=== PATIENT | male | born 1945 | race Caucasian/White ===

== ENCOUNTER 2018-07-22 15:10 | Emergency (ER) | payer OTHER ==
--- NOTE | 2018-07-22 15:47 | RAD REPORT ---
EXAM DESCRIPTION: RAD - Hand Left 3 View - 07/22/2018 3:36 pm CLINICAL HISTORY: Acute traumatic injury to the thumb COMPARISON: None. FINDINGS: Comminuted fracture involves the distal phalanx of the thumb. Multiple small bone fragment s are seen in the soft tissues. There is amputation of the distal soft tissues which likely includes partial amputation of the tuft. No retained foreign body. Patient has degenerative change at the IP joint of the thumb along with deg enerative changes at the second- fifth IP joints. Prominent degenerative change involves the first ca rpal - metacarpal articulation. IMPRESSION: Comminuted fracture of the distal phalanx thumb with tuft and soft tissue amputation.
[2018-07-22] MEDS ORDERED: NA CHLORIDE 0.9% 1,000 ML ONE (17:32)
--- NOTE | 2018-07-22 17:56 | EDPHYS ---
Physician Documentation [facility] Name: Joon Turcios Jr Age: 72 yrs Sex: Male : 1945 Arrival Date: 07/22/2018 Time: 15:12 Bed 17 Private MD: ED Physician Og Plata HPI: 07/22 15:21 This 72 yrs old Male presents to ER via Ambulatory with complaints of Left pm1 Thumb Injury. 15:21 Trauma demographics: Location of Injury: The injury occurred at home. Mechanism of pm1 injury: Laceration from the fan of leaf blower. Associated injuries: The patient sustained left thumb. Onset: The symptoms/episode began/occurred just prior to arrival. The patient has not experienced similar symptoms in the past. The patient has not recently seen a physician, the patient's primary care provider is Dr. MURRIETA. Tetanus within the last year. Patient was using a leaf blower with the guard to fan broken. Accidentally dropped the leaf blower caught it. Left thumb cut by the exposed fan. Historical: - Allergies: 15:23 Streptomycin; sv 15:23 unkn HTN med; sv - Home Meds: 15:14 Eliquis oral oral [Active]; sv - PMHx: 15:14 Chron's; sv - PSHx: 15:23 Ileostomy and reversal; sv - Immunization history:: Adult Immunizations unknown. - Immunization history: Last tetanus immunization: - up to date. - Social history:: Smoking status: Patient/guardian denies using tobacco. - Ebola Screening: : No symptoms or risks identified at this time. ROS: 15:24 Constitutional: Negative for fever, chills, and weight loss, Eyes: Negative for injury, pm1 pain, redness, and discharge, ENT: Negative for injury, pain, and discharge, Neck: Negative for injury, pain, and swelling, Cardiovascular: Negative for chest pain, palpitations, and edema, Respiratory: Negative for shortness of breath, cough, wheezing, and pleuritic chest pain, Abdomen/GI: Negative for abdominal pain, nausea, vomiting, diarrhea, and constipation, Back: Negative for injury and pain. 15:24 MS/extremity: Positive for injury or acute deformity, of the left thumb. 15:24 Skin: Positive for laceration(s), of the left thumb. Exam: 15:30 Constitutional: This is a well developed, well nourished patient who is awake, alert, pm1 and in no acute distress. Head/Face: Normocephalic, atraumatic. Eyes: Pupils equal round and reactive to light, extra-ocular motions intact. Lids and lashes normal. Conjunctiva and sclera are non-icteric and not injected. Cornea within normal limits. Periorbital areas with no swelling, redness, or edema. Neck: Trachea midline, no thyromegaly or masses palpated, and no cervical lymphadenopathy. Supple, full range of motion without nuchal rigidity, or vertebral point tenderness. No Meningismus. Chest/axilla: Normal chest wall appearance and motion. Nontender with no deformity. No lesions are appreciated. Cardiovascular: Regular rate and rhythm with a normal S1 and S2. No gallops, murmurs, or rubs. Normal PMI, no JVD. No pulse deficits. Respiratory: Lungs have equal breath sounds bilaterally, clear to auscultation and percussion. No rales, rhonchi or wheezes noted. No increased work of breathing, no retractions or nasal flaring. Back: No spinal tenderness. No costovertebral tenderness. Full range of motion. 15:30 Musculoskeletal/extremity: Extremities: grossly normal except: noted in the left thumb: Avulsion of 2/3's of left thumb nail. Remaining nail with nail bed intact. Amputation of tip of left thumb. 15:30 Skin: Appearance: normal except for affected area, injury, amputation of tip of left thumb. 15:30 Neuro: Orientation: is normal, Motor: is normal, moves all fours, Sensation: is normal, no obvious gross deficits. Vital Signs: 15:14 BP 150 / 98; Pulse 83; Resp 20; Pulse Ox 96% ; sv 17:36 BP 147 / 86; Pulse 76; Resp 14; Pulse Ox 98% on R/A; ph 18:41 BP 137 / 78; Pulse 76; Resp 18; Temp 98.0; Pulse Ox 99% on R/A; ph Laya Coma Score: 15:35 Eye Response: spontaneous(4). Verbal Response: oriented(5). Motor Response: obeys ph commands(6). Total: 15. Trauma Score (Adult): 15:35 Eye Response: spontaneous(1); Verbal Response: oriented(1); Motor Response: obeys ph commands(2); Systolic BP: > 89 mm Hg(4); Respiratory Rate: 10 to 29 per min(4); Laya Score: 15; Trauma Score: 12 MDM: 15:20 Patient medically screened. pm1 17:50 ED course: Consult with Dr. Plata. Dress the tip of wound with Surgicel, give pm1 antibiotic prescription, and patient can follow up with hand surgery on outpatient basis. 17:53 Data reviewed: vital signs. Data interpreted: Pulse oximetry: on room air is 98 %. pm1 Interpretation: normal. Counseling: I had a detailed discussion with the patient and/or guardian regarding: the historical points, exam findings, and any diagnostic results supporting the discharge/admit diagnosis, radiology results, the need for outpatient follow up, for definitive care, a hand specialist, to return to the emergency department if symptoms worsen or persist or if there are any questions or concerns that arise at home. 07/22 15:21 Order name: Hand Left 3 View XRAY; Complete Time: 16:00 pm1 07/22 17:07 Order name: Wound Care; Complete Time: 17:34 pm1 07/22 17:07 Order name: Misc. Order: surgicel hemostat; Complete Time: 17:34 pm1 07/22 17:07 Order name: Wound dressing; Complete Time: 18:01 pm1 Administered Medications: 18:19 Drug: Ancef 1 grams Route: IM; Site: left gluteus; ph 18:42 Follow up: Response: No adverse reaction ph 18:20 Drug: traMADol 50 mg Route: PO; ph 18:41 Follow up: Response: No adverse reaction ph Disposition: 19:32 Co-signature as Attending Physician, Og Plata MD I agree with the assessment and kdr plan of care. Disposition: 07/22/18 17:55 Discharged to Home. Impression: Comminuted fracture of the distal phalanx left thumb with tuft and soft tissue amputation. - Condition is Stable. - Discharge Instructions: Traumatic Finger Amputation. - Prescriptions for Keflex 500 mg Oral Capsule - take 1 capsule by ORAL route every 6 hours for 10 days; 40 capsule. Tramadol 50 mg Oral Tablet - take 1 tablet by ORAL route every 8 hours as needed; 20 tablet. - Medication Reconciliation Form, Thank You Letter, Antibiotic Education, Prescription Opioid Use form. - Follow up: Emergency Department; When: As needed; Reason: Worsening of condition. Follow up: Jose Baer MD; When: 2 - 3 days; Reason: Recheck today's complaints, Continuance of care, Re-evaluation by your physician. - Problem is new. - Symptoms have improved. Signatures: Dispatcher [employer] Cara Kimble RN RN Og Plata MD MD [facility] Mariluz Harris RN RN Nathen Flood, [employer] HEAD INSPECTOR AND ADJUSTER pm1 Corrections: (The following items were deleted from the chart) 15:23 15:14 PSHx: illostomy; [facility] 18:57 17:55 07/22/2018 17:55 Discharged to Home. Impression: Comminuted fracture of the ph distal phalanx left thumb with tuft and soft tissue amputation. Condition is Stable. Forms are Medication Reconciliation Form, Thank You Letter, Antibiotic Education, Prescription Opioid Use. Follow up: Emergency Department; When: As needed; Reason: Worsening of condition. Follow up: Jose Baer; When: 2 - 3 days; Reason: Recheck today's complaints, Continuance of care, Re-evaluation by your physician. Problem is new. Symptoms have improved. pm1
--- NOTE | 2018-07-22 17:56 | ER ---
Nurse's Notes [facility] Name: Joon Turcios Jr Age: 72 yrs Sex: Male : 1945 Arrival Date: 07/22/2018 Time: 15:12 Bed 17 Private MD: Diagnosis: Comminuted fracture of the distal phalanx left thumb with tuft and soft tissue amputation Presentation: 07/22 15:12 Presenting complaint: Patient states: left thumb amputation and maceration from a sv blower that occurred today. Transition of care: patient was not received from another setting of care. Onset of symptoms was July 22, 2018. Care prior to arrival: None. 15:12 Method Of Arrival: Ambulatory sv 15:12 Acuity: [place] 2 sv 15:14 Mechanism of Injury: Laceration sustained at home, while doing yard work, from leaf blower Injury was accidental. Trauma event details: Injury occurred in the [facility], Injury occurred: at home. 15:36 Risk Assessment: Do you want to hurt yourself or someone else? Patient reports no ph desire to harm self or others. Initial Sepsis Screen: Does the patient meet any 2 criteria? No. Patient's initial sepsis screen is negative. Does the patient have a suspected source of infection? No. Patient's initial sepsis screen is negative. Triage Assessment: 16:39 General: Appears. ph Trauma Activation: Alert Physician: ED Physician; Name: Aleena ZIEGLER; Notified At: 15:14; Arrived At: 15:16 Physician: General Surgeon; Name: ; Notified At: 15:14; Arrived At: Physician: Radiology; Name: ; Notified At: 15:14; Arrived At: 15:15 Physician: Respiratory; Name: ; Notified At: 15:14; Arrived At: Physician: Lab; Name: ; Notified At: 15:14; Arrived At: Historical: - Allergies: 15:23 Streptomycin; sv 15:23 unkn HTN med; sv - Home Meds: 15:14 Eliquis oral oral [Active]; sv - PMHx: 15:14 Chron's; sv - PSHx: 15:23 Ileostomy and reversal; sv - Immunization history:: Adult Immunizations unknown. - Immunization history: Last tetanus immunization: - up to date. - Social history:: Smoking status: Patient/guardian denies using tobacco. - Ebola Screening: : No symptoms or risks identified at this time. Screenin:35 Abuse screen: Denies threats or abuse. Denies injuries from another. Nutritional ph screening: No deficits noted. Tuberculosis screening: No symptoms or risk factors identified. Fall Risk None identified. Primary Survey: 15:31 A: Airway: patent. Breathing/Chest: Respiratory pattern: regular, Respiratory effort: ph spontaneous, unlabored, Chest inspection: symmetrical rise and fall of the chest. Circulation: Pulses: palpable right radial artery and left radial artery. Skin color: pink, Skin temperature: warm, dry. Disability Alert. 18:41 Reassessment Breathing/Chest Respiratory pattern Regular Circulation Color [place] ph Temperature Warm Dry Disability Alert. Secondary Survey: 15:32 HEENT: No deficits noted. Gastrointestinal: No deficits noted. : No signs and/or ph symptoms were reported regarding the genitourinary system. Musculoskeletal: Circulation, motion, and sensation intact. Range of motion: intact in all extremities. Injury Description: Avulsion sustained to left thumb Laceration sustained to left thumb. Assessment: 15:30 General: Appears in no apparent distress. uncomfortable, slender, well groomed, ph Behavior is calm, cooperative, appropriate for age. Pain: Complains of pain in left thumb. Neuro: Level of Consciousness is awake, alert, obeys commands, Oriented to person, place, time, situation. Cardiovascular: Capillary refill < 3 seconds in bilateral fingers Patient's skin is warm and dry. Respiratory: Airway is patent Respiratory effort is even, unlabored. Derm: Skin is healthy with good turgor, Skin is pink, warm \T\ dry. Musculoskeletal: Circulation, motion, and sensation intact. Range of motion: intact in all extremities. Injury Description: Amputation sustained to left thumbnail. 16:30 Reassessment: Patient appears in no apparent distress at this time. Patient and/or ph family updated on plan of care and expected duration. Pain level reassessed. Patient is alert, oriented x 3, equal unlabored respirations, skin warm/dry/pink. 17:35 Reassessment: Patient appears in no apparent distress at this time. Patient and/or ph family updated on plan of care and expected duration. Pain level reassessed. Patient is alert, oriented x 3, equal unlabored respirations, skin warm/dry/pink. Pt resting quietly w/injured extremity soaking in NS and betadine, rates pain 3/10 and denies nausea. Vital Signs: 15:14 BP 150 / 98; Pulse 83; Resp 20; Pulse Ox 96% ; sv 17:36 BP 147 / 86; Pulse 76; Resp 14; Pulse Ox 98% on R/A; ph 18:41 BP 137 / 78; Pulse 76; Resp 18; Temp 98.0; Pulse Ox 99% on R/A; ph Laya Coma Score: 15:35 Eye Response: spontaneous(4). Verbal Response: oriented(5). Motor Response: obeys ph commands(6). Total: 15. Trauma Score (Adult): 15:35 Eye Response: spontaneous(1); Verbal Response: oriented(1); Motor Response: obeys ph commands(2); Systolic BP: > 89 mm Hg(4); Respiratory Rate: 10 to 29 per min(4); [place] Score: 15; Trauma Score: 12 ED Course: 15:12 Patient arrived in ED. sv 15:13 Triage completed. sv 15:14 Arm band placed on right wrist. Patient placed in an exam room, on a stretcher. sv 15:17 Nathen Flodo NP is PHCP. pm1 15:17 Og Plata MD is Attending Physician. pm1 15:31 Mariluz Harris, RN is Primary Nurse. ph 15:35 X-ray completed. Portable x-ray completed in exam room. Patient tolerated procedure ml well. 15:35 Patient has correct armband on for positive identification. Bed in low position. Call ph light in reach. Side rails up X 1. Pulse ox on. NIBP on. Warm blanket given. 15:36 Patient maintains SpO2 saturation greater than 95% on room air. Thermoregulation: warm ph blanket given to patient. 15:37 Hand Left 3 View XRAY In Process Unspecified. EDMS 17:53 Jose Baer MD is Referral Physician. pm1 18:00 Dressings: Tube gauze X 1; left thumb 4X4s X 1; left thumb Surgicel. Wound care: to. ph Wound care: to amputation of tip of L thumb located on left thumb was soaked in normal saline solution. 18:40 Assist provider with bone marrow aspiration. Patient did not have IV access during this emergency room visit. Administered Medications: 18:19 Drug: Ancef 1 grams Route: IM; Site: left gluteus; ph 18:42 Follow up: Response: No adverse reaction ph 18:20 Drug: traMADol 50 mg Route: PO; ph 18:41 Follow up: Response: No adverse reaction ph Intake: 15:35 PO: 0ml; Total: 0ml. ph Output: 15:35 Urine: 0ml; Total: 0ml. ph Outcome: 17:55 Discharge ordered by MD. pm1 18:42 Discharged to home ambulatory, with significant other. ph 18:42 Condition: good 18:42 Discharge instructions given to patient, family, Instructed on discharge instructions, follow up and referral plans. medication usage, Demonstrated understanding of instructions, follow-up care, medications, Prescriptions given X 2. 18:57 Patient left the ED. ph 18:57 Patient's length of stay was not longer than 2 hours. Signatures: Dispatcher [employer] EDCara Mendez RN RN Dominique Weeks Patricia, RN RN ph Marinas, Patrick, FEEDER WORKER POWER UNIT OPERATOR FEEDER WORKER POWER UNIT OPERATOR pm1 Corrections: (The following items were deleted from the chart) 15:23 15:14 PSHx: illostomy; radha garcia
[2018-07-22] MEDS ORDERED: TRAMADOL HCL 50 MG TAB ONE (18:15)
[2018-07-22] MEDS ORDERED: CEFAZOLIN SODIUM 1 GM/VIAL ONE (18:15)
[2018-07-22] MEDS ORDERED: WATER FOR INJ,STERILE 10 ML ONE (18:15)
== END 2018-07-22 18:57 | disposition home or self-care (01) ==
LOC: ER 15:10
DX: S68.022A Partial traumatic metacarpophalangeal amputation of left thumb, initial encounter (principal); S62.522A Displaced fracture of distal phalanx of left thumb, initial encounter for closed fracture; W29.2XXA Contact with other powered household machinery, initial encounter; Y93.89 Activity, other specified; Y92.009 Unspecified place in unspecified non-institutional (private) residence as the place of occurrence of the external cause; Z88.3 Allergy status to other anti-infective agents; Z88.8 Allergy status to other drugs, medicaments and biological substances
CPT/HCPCS: 96372; 99285; J0690; J7030

== ENCOUNTER 2020-08-30 22:32 | Inpatient (IN) | payer OTHER ==
[2020-08-30 23:59] LABS: Absolute Lymphocytes (CBC) 0.9 K/uL (0.7-4.9); Basophils % 0.4 % (0-1.3); Hematocrit 39.1 % (39.6-49.0); Lymphocytes % 22.9 % (15.3-44.8); MPV 8.5 fL (7.6-11.3); RBC Red Blood Cell Count 4.36 M/uL (4.33-5.43)
[2020-08-31] LABS: Protime INR 1.16
[2020-08-31 00:30] LABS: ALT/SGPT 41 U/L (12-78); AST/SGOT 47 U/L (15-37); Albumin 3.4 g/dL (3.4-5.0); Alkaline Phosphatase 55 U/L (45-117); BUN Blood Urea Nitrogen 15 mg/dL (7-18); Bicarbonate 21 mmol/L (21-32); Bilirubin Direct 0.2 mg/dL (0-0.2); Bilirubin Total 0.5 mg/dL (0.2-1.0); Ferritin 266.2 ng/mL (26-388); Glucose Level 125 mg/dL (74-106); Lipase 35 U/L (73-393); Protein, Total 7.8 g/dL (6.4-8.2); Sodium Level 132 mmol/L (136-145); Troponin (Emerg Dept Use Only) < 0.02 ng/mL (0.0-0.045)
[2020-08-31 00:45] LABS: Blood Gas Oxyhemoglobin 93.7 % (94-97); Blood O2 Saturation 95.2 % (92-98.5)
--- NOTE | 2020-08-31 07:01 | EDPHYS ---
Physician Documentation [facility] Name: Joon Turcios Jr Age: 74 yrs Sex: Male : 1945 Arrival Date: 08/30/2020 Time: 22:36 Bed 7 Private MD: ED Physician Darci Weber HPI: 08/31 00:49 This 74 yrs old Male presents to ER via Ambulatory with complaints of COVID pkl +, Fever, Cough, Congestion. 00:49 The patient reports fever, that was measured at 103.0 degrees Fahrenheit, with an l emergency department temperature of 101.1 degrees Fahrenheit. Onset: The symptoms/episode began/occurred today. Associated signs and symptoms: Pertinent positives: shortness of breath, bodyaches. Patient was seen at [facility] last Saturday. Had Covid 19 done. Was told today his Covid 19 test is positive. Was told to come to ER if temp. was over 103. . Historical: - Allergies: 08/30 23:16 Streptomycin; bb 23:16 Lisinopril; bb 23:16 Streptomycin; ea 23:16 unkn HTN med; ea - Home Meds: 23:16 allopurinol 100 mg Oral tab 1 tab once daily [Active]; apixaban oral 5 mg oral 1 tab 2 bb times per day [Active]; Cholestyramine Light 4 gram oral powd 3 times per day [Active]; B-12 1000 mcg daily [Active]; gabapentin 300 mg oral cap 1 cap 3 times per day [Active]; losartan 50 mg oral tab 1 tab 2 times per day [Active]; magnesium oxide 420 mg Oral tab twice a day [Active]; omeprazole 20 mg Oral cpDR 1 cap once daily [Active]; D3 [Active]; Keflex Oral [Active]; loperamide 2 mg Oral cap 1 caps twice a day [Active]; - PMHx: 23:16 Crohns Disease; Neuropathy; Hypertension; GERD; bb 23:16 chron's; ea - PSHx: 23:16 abdominal surgery; bb 23:16 Ileostomy and reversal; ea - Immunization history:: Adult Immunizations up to date, Adult Immunizations up to date, Flu vaccine is up to date. - Social history:: Smoking status: Patient denies any tobacco usage or history of. Smoking status: Patient denies any tobacco usage or history of. ROS: 08/31 00:49 Eyes: Negative for injury, pain, redness, and discharge. pkl ENT: Positive for Lost of taste and smell. Neck: Negative for stiffness. Cardiovascular: Negative for chest pain. Respiratory: Positive for cough, with clear sputum, shortness of breath, at rest. Abdomen/GI: Negative for abdominal pain, nausea, vomiting, and diarrhea. Back: Negative for acute changes. : Negative for urinary symptoms. MS/extremity: Negative for acute changes. Skin: Negative for rash. Neuro: Negative for altered mental status. Exam: 00:49 Head/Face: Normocephalic, atraumatic. Eyes: Pupils equal round and reactive to light, pkl extra-ocular motions intact. Lids and lashes normal. Conjunctiva and sclera are non-icteric and not injected. Cornea within normal limits. Periorbital areas with no swelling, redness, or edema. ENT: Nares patent. No nasal discharge, no septal abnormalities noted. Tympanic membranes are normal and external auditory canals are clear. Oropharynx with no redness, swelling, or masses, exudates, or evidence of obstruction, uvula midline. Mucous membranes moist. Neck: Trachea midline, no thyromegaly or masses palpated, and no cervical lymphadenopathy. Supple, full range of motion without nuchal rigidity, or vertebral point tenderness. No Meningismus. Chest/axilla: Normal chest wall appearance and motion. Nontender with no deformity. No lesions are appreciated. Cardiovascular: Regular rate and rhythm with a normal S1 and S2. No gallops, murmurs, or rubs. Normal PMI, no JVD. No pulse deficits. 00:49 Respiratory: mild respiratory distress is noted, Respirations: normal, Breath sounds: rales, that are mild, are scattered. 00:49 Abdomen/GI: Exam negative for acute changes, Bowel sounds: normal, Palpation: abdomen is soft and non-tender, in all quadrants. 00:49 Back: Exam negative for acute changes. 00:49 : Exam negative for acute changes. 00:49 Musculoskeletal/extremity: Exam is negative for acute changes. 00:49 Skin: Exam negative for rash. 00:49 Neuro: Orientation: is normal, Mentation: is normal, Cranial nerves: grossly normal, Motor: is normal. Vital Signs: 08/30 23:05 BP 114 / 65; Pulse 81; Resp 24 S; Temp 101.1(O); Pulse Ox 89% on R/A; Weight 90.72 kg bb (R); Height 6 ft. 1 in. (185.42 cm) (R); Pain 02/11; 08/31 00:34 BP 102 / 68; Pulse 63; Resp 22; Pulse Ox 98% on 2 lpm NC; ea 01:34 BP 90 / 60; Pulse 60; Resp 19; Pulse Ox 94% on 2 lpm NC; ea 01:35 Temp 99.7; ea 02:30 BP 119 / 66; Pulse 55; Resp 21; Pulse Ox 98% on 2 lpm NC; ea 04:09 BP 125 / 69; Pulse 60; Resp 20; Pulse Ox 97% ; ea 05:10 BP 127 / 75; Pulse 70; Resp 18; Pulse Ox 98% on 2 lpm NC; ea 06:35 BP 115 / 78; Pulse 67; Resp 18; Pulse Ox 94% ; ea 07:25 BP 142 / 84; Pulse 76; Resp 26; Temp 100.6; Pulse Ox 100% on 3.5 lpm NC; vg1 08:30 BP 134 / 82; Pulse 74; Resp 22; Pulse Ox 97% on 3.5 lpm NC; sv 08/30 23:05 Body Mass Index 26.39 (90.72 kg, 185.42 cm) bb MDM: 08/30 23:03 Patient medically screened. pkl 08/31 06:10 Data reviewed: vital signs, nurses notes, lab test result(s), EKG, radiologic studies, pkl CT scan, plain films. ED course: Awaiting response from [facility] regarding transfer. Patient and notified of situation. Patient requests to be admitted here. 06:36 ED course: Talked to Dr. Cohen, admit. pkl 07:00 Patient medically screened. pkl 08/30 23:17 Order name: Blood Culture Adult (2) 08/30 23:17 Order name: Lactate; Complete Time: 00:17 ea 08/30 23:20 Order name: Strep ea 08/30 23:20 Order name: BMP 08/30 23:20 Order name: C-Reactive Protein 08/30 23:20 Order name: CBC with Diff; Complete Time: 00:17 08/30 23:20 Order name: D-Dimer; Complete Time: 00:17 08/30 23:20 Order name: Ferritin; Complete Time: 00:37 08/30 23:20 Order name: Flu; Complete Time: 00:37 08/30 23:20 Order name: LFT's; Complete Time: 00:37 08/30 23:20 Order name: Lipase; Complete Time: 00:37 08/30 23:20 Order name: Procalcitonin; Complete Time: 04:25 08/30 23:20 Order name: PT-INR; Complete Time: 00:17 08/30 23:20 Order name: Ptt, Activated; Complete Time: 00:17 08/30 23:20 Order name: Troponin (emerg Dept Use Only); Complete Time: 00:37 08/30 23:20 Order name: CXR XRAY 08/30 23:20 Order name: EKG; Complete Time: 23:21 08/30 23:20 Order name: Cardiac monitoring; Complete Time: 23:28 08/30 23:20 Order name: Droplet/Contact Precautions; Complete Time: 23:27 08/30 23:21 Order name: Group A Streptococcus Rapid Sc; Complete Time: 00:37 EDTN 08/30 23:21 Order name: Basic Metabolic Panel; Complete Time: 00:37 EDTN 08/30 23:21 Order name: C-Reactive Protein; Complete Time: 00:37 EDTN 08/30 23:21 Order name: CT Chest Wo Con 08/30 23:21 Order name: ABG; Complete Time: 04:25 08/31 00:34 Order name: Throat Culture [facility] 08/31 03:05 Order name: SARS-COV-2 RT PCR; Complete Time: 04:25 EDTN 08/30 23:20 Order name: EKG - Nurse/Tech; Complete Time: 23:27 08/30 23:20 Order name: IV Start; Complete Time: 00:13 08/30 23:20 Order name: Labs collected and sent; Complete Time: 00:13 08/30 23:20 Order name: O2 Per Protocol; Complete Time: 23:22 08/30 23:20 Order name: O2 Sat Monitoring; Complete Time: 23:22 ea Administered Medications: 07:20 Drug: SOLU-Medrol 80 mg Route: IVP; Site: right forearm; vg1 08:31 Follow up: Response: No adverse reaction vg1 Disposition: 08/31/20 07:00 Hospitalization ordered by Ramin Cohen for Inpatient Admission. Preliminary diagnosis is Positive Covid 19. Bilateral pneumonia. Hypoxia. - Bed requested for Intensive Care Unit. - Status is Inpatient Admission. sv - Condition is Stable. - Problem is new. - Symptoms are unchanged. Signatures: Dispatcher [employer] EDMS Melissa Zhao Stephanie, RN Darci Contreras MD MD pkl Ballard, Brenda, RN RN Bhavesh Donald, IT PROFESSIONAL-C IT PROFESSIONAL-Cla1 Damari Jovel RN Yee Nicholas ea RN RN vg1 Corrections: (The following items were deleted from the chart) 08/30 23:22 23:20 Maddox ordered. morgan 23:53 23:21 LACTATE+C.LAB.BRZ ordered. EDTN EDMS 08/31 01:46 01:11 CORONAVIRUS+MR.LAB.BRZ ordered. EDTN EDMS 07:36 08/30 23:20 Notify Health Dept [phone]/ ordered. ea sv 08/31 08:02 07:00 Hospitalization Ordered by Ramin Cohen DO for Inpatient Admission. Preliminary bd diagnosis is Positive Covid 19. Bilateral pneumonia. Hypoxia. Bed requested for Telemetry/MedSurg (Inpatient). Status is Inpatient Admission. Condition is Stable. Problem is new. Symptoms are unchanged. pkl 08:52 08:02 08/31/2020 07:00 Hospitalization Ordered by Ramin Cohen DO for Inpatient sv Admission. Preliminary diagnosis is Positive Covid 19. Bilateral pneumonia. Hypoxia. Bed requested for Intensive Care Unit. Status is Inpatient Admission. Condition is Stable. Problem is new. Symptoms are unchanged. bd
--- NOTE | 2020-08-31 07:01 | ER ---
Nurse's Notes [facility] Name: Joon Turcios Jr Age: 74 yrs Sex: Male : 1945 Arrival Date: 08/30/2020 Time: 22:36 Bed 7 Private MD: Diagnosis: Positive Covid 19. Bilateral pneumonia. Hypoxia Presentation: 08/30 23:05 Chief complaint: Patient states: he was tested Saturday for COVID and today received a bb positive report and was told to come to ED if temp was over 103 at approx 2115 tonight pt was last given tylenol at approx [phone] tonight. Pt c/o cough, aching all over and fever. Coronavirus screen: cough unrelated to allergies, fever, Client reports previous positive COVID test result. Date of collection: August 26, 2020. Ebola Screen: No symptoms or risks identified at this time. Initial Sepsis Screen: Does the patient meet any 2 criteria? RR > 20 per min. Temp <36.0*C (96.8*F)) or > 38.3*C (100.9*F). Yes Does the patient have a suspected source of infection? Yes: Productive cough/pneumonia If YES to both, name of provider notified: Darci Weber MD Risk Assessment: Do you want to hurt yourself or someone else? Patient reports no desire to harm self or others. Onset of symptoms was August 26, 2020. 23:05 Method Of Arrival: Ambulatory bb 23:05 Acuity: ISRRAEL 2 bb Historical: - Allergies: 23:16 Streptomycin; bb 23:16 Lisinopril; bb 23:16 Streptomycin; ea 23:16 unkn HTN med; ea - Home Meds: 23:16 allopurinol 100 mg Oral tab 1 tab once daily [Active]; apixaban oral 5 mg oral 1 tab 2 bb times per day [Active]; Cholestyramine Light 4 gram oral powd 3 times per day [Active]; B-12 1000 mcg daily [Active]; gabapentin 300 mg oral cap 1 cap 3 times per day [Active]; losartan 50 mg oral tab 1 tab 2 times per day [Active]; magnesium oxide 420 mg Oral tab twice a day [Active]; omeprazole 20 mg Oral cpDR 1 cap once daily [Active]; D3 [Active]; Keflex Oral [Active]; loperamide 2 mg Oral cap 1 caps twice a day [Active]; - PMHx: 23:16 Crohns Disease; Neuropathy; Hypertension; GERD; bb 23:16 chron's; ea - PSHx: 23:16 abdominal surgery; bb 23:16 Ileostomy and reversal; ea - Immunization history:: Adult Immunizations up to date, Adult Immunizations up to date, Flu vaccine is up to date. - Social history:: Smoking status: Patient denies any tobacco usage or history of. Smoking status: Patient denies any tobacco usage or history of. Screenin:08 Abuse screen: Denies threats or abuse. Nutritional screening: No deficits noted. ea Tuberculosis screening: No symptoms or risk factors identified. Fall Risk None identified. Assessment: 23:07 General: Appears uncomfortable, Behavior is appropriate for age. Pain: Denies pain. ea Neuro: Level of Consciousness is awake, alert, obeys commands, Oriented to person, place, time, situation. Cardiovascular: Patient's skin is warm and dry. Respiratory: Airway is patent Respiratory effort is even, unlabored, Respiratory pattern is tachypnea. Derm: Skin is pink, warm \T\ dry. 08/31 00:34 Reassessment: Patient and/or family updated on plan of care and expected duration. Pain ea level reassessed. Patient is alert, oriented x 3, equal unlabored respirations, skin warm/dry/pink. 01:41 Reassessment: Patient and/or family updated on plan of care and expected duration. Pain ea level reassessed. Patient is alert, oriented x 3, equal unlabored respirations, skin warm/dry/pink. 02:40 Reassessment: Patient and/or family updated on plan of care and expected duration. Pain ea level reassessed. Patient is alert, oriented x 3, equal unlabored respirations, skin warm/dry/pink. Awaiting on covid results. 03:30 Reassessment: Patient is alert, oriented x 3, equal unlabored respirations, skin ea warm/dry/pink. Reassessment: Patient is alert, oriented x 3, equal unlabored respirations, skin warm/dry/pink. 04:11 Reassessment: Patient and/or family updated on plan of care and expected duration. Pain ea level reassessed. Patient is alert, oriented x 3, equal unlabored respirations, skin warm/dry/pink. Awaiting on acceptance from [place]. 05:30 Reassessment: Patient and/or family updated on plan of care and expected duration. Pain ea level reassessed. Patient is alert, oriented x 3, equal unlabored respirations, skin warm/dry/pink. Reassessment: Awaiting on acceptance from [place]. 06:07 Reassessment: spoke to family and gave option of continuing waiting on transfer to the [facility] or to be admitted here at [facility] Pt and spouse state they prefer to be admitted here. [facility] notified by [facility] guidance secretary of change in plan. 07:20 General: Appears uncomfortable, Behavior is calm, cooperative. Pain: Denies pain. vg1 Neuro: Level of Consciousness is awake, alert, obeys commands, Oriented to person, place, time, situation. Cardiovascular: Capillary refill < 3 seconds in bilateral fingers Patient's skin is warm and dry. Respiratory: Breath sounds with crackles in left posterior lower lobe. Respiratory: Sputum is milky white. GI: No signs and/or symptoms were reported involving the gastrointestinal system. : No signs and/or symptoms were reported regarding the genitourinary system. EENT:. Derm: Skin is pink, warm \T\ dry. Musculoskeletal: Range of motion: intact in all extremities. 08:25 Reassessment: Report given to Yamilka COHN. vg1 Vital Signs: 08/30 23:05 BP 114 / 65; Pulse 81; Resp 24 S; Temp 101.1(O); Pulse Ox 89% on R/A; Weight 90.72 kg (R); Height 6 ft. 1 in. (185.42 cm) (R); Pain 10; 08/31 00:34 BP 102 / 68; Pulse 63; Resp 22; Pulse Ox 98% on 2 lpm NC; ea 01:34 BP 90 / 60; Pulse 60; Resp 19; Pulse Ox 94% on 2 lpm NC; ea 01:35 Temp 99.7; ea 02:30 BP 119 / 66; Pulse 55; Resp 21; Pulse Ox 98% on 2 lpm NC; ea 04:09 BP 125 / 69; Pulse 60; Resp 20; Pulse Ox 97% ; ea 05:10 BP 127 / 75; Pulse 70; Resp 18; Pulse Ox 98% on 2 lpm NC; ea 06:35 BP 115 / 78; Pulse 67; Resp 18; Pulse Ox 94% ; ea 07:25 BP 142 / 84; Pulse 76; Resp 26; Temp 100.6; Pulse Ox 100% on 3.5 lpm NC; vg1 08:30 BP 134 / 82; Pulse 74; Resp 22; Pulse Ox 97% on 3.5 lpm NC; sv 08/30 23:05 Body Mass Index 26.39 (90.72 kg, 185.42 cm) bb ED Course: 08/30 22:36 Patient arrived in ED. am2 23:00 Damari Jovel, RN is Primary Nurse. ea 23:03 Darci Weber MD is Attending Physician. pkl 23:08 Patient has correct armband on for positive identification. Bed in low position. Call ea light in reach. Side rails up X 1. Adult w/ patient. potline monitor on. Pulse ox on. NIBP on. 23:08 Arm band placed on right wrist. Patient placed in an exam room, on a stretcher, on ea oxygen, on radiation monitor, on pulse oximetry. 23:11 Triage completed. bb 23:12 Darci Weber MD is Attending Physician. pkl 23:40 Inserted saline lock: 20 gauge in right forearm, using aseptic technique. Blood ea collected. 23:57 CXR XRAY In Process Unspecified. EDMS 08/31 00:13 CT Chest Wo Con In Process Unspecified. EDMS 01:09 Initiated transfer to [place] spoke with Nelda Thibodeaux. Nelda asked to fax all pt. clinicals to [facility] [phone] when he COVID swab comes back. 03:10 Faxed all of pt. clinicals and results to [place]. ar5 04:31 Called [place] for update on trasnfer. Don was scanning the chart into the computer and ar5 then calling the ER drAmbrosio for - 06:09 [facility]ancelled [facility] Transfer. ar5 06:31 [facility] notification #[id number]. ar5 06:59 Ramin Cohen DO is Hospitalizing Provider. pkl 07:06 Primary Nurse role handed off by Damari Jovel, RN vg1 07:06 Yee Yarbrough, RN is Primary Nurse. vg1 07:12 No provider procedures requiring assistance completed. Patient admitted, IV remains in ea place. 07:25 IV is patent, is intact, Flushed right forearm with 2 ml normal saline. vg1 07:36 Throat Culture Sent. sv 07:36 Strep Sent. sv 07:36 BMP Sent. sv 07:36 C-Reactive Protein Sent. sv Administered Medications: 07:20 Drug: SOLU-Medrol 80 mg Route: IVP; Site: right forearm; vg1 08:31 Follow up: Response: No adverse reaction vg1 Outcome: 07:00 Decision to Hospitalize by Provider. pkl 07:12 Instructed on the need for admit, Demonstrated understanding of instructions. ea 08:29 Admitted to ICU accompanied by tech, via stretcher, room 1, with oxygen, with chart, vg1 Report called to Yamilka COHN 08:29 Condition: unchanged 08:52 Patient left the ED. sv Signatures: Dispatcher [employer] EDCara Mendez RN Darci Contreras MD MD pkYaz Castillo RN Diana Mckeon am2 Damari Jovel RN RN ea Robles, Autumn arYee Corral, RN RN vg1 Corrections: (The following items were deleted from the chart) 00:34 00:34 BP 102 / 68; Pulse 63bpm; Resp 18bpm; Pulse Ox 98% 2 lpm Nasal Cannula; ea ea 01:33 01:33 BP 121 / 69; Pulse 77bpm; Resp 24bpm; Pulse Ox 94% BiPAP; ea ea 04:14 04:11 Reassessment: Patient and/or family updated on plan of care and expected ea duration. Pain level reassessed. Patient is alert, oriented x 3, equal unlabored respirations, skin warm/dry/pink. ea
--- NOTE | 2020-08-31 07:20 | EKG ---
Test Date: 2020-08-30 Test Time: 23:29:10 Compensation Business Partner: HERACLIO MEASUREMENT RESULTS: Intervals: Rate: 72 MA: 192 QRSD: 92 QT: 366 QTc: 400 Mulga: P: 37 MA: 192 QRS: 15 T: 23 INTERPRETIVE STATEMENTS: Normal sinus rhythm Nonspecific T wave abnormality Abnormal ECG Compared to ECG 11/09/2013 22:35:52 T-wave abnormality now present Sinus bradycardia no longer present Electronically Signed On 08-31-20 07:19:32 CDT by Lobo Keys
[2020-08-31] MEDS ORDERED: METHYLPREDNISOLONE 40 MG INJ ONE (07:25)
[2020-08-31] MEDS ORDERED: METHYLPREDNISOLONE 125 MG INJ ONE (07:28)
--- NOTE | 2020-08-31 09:11 | RAD REPORT ---
EXAM DESCRIPTION: RAD - Chest Single View - 08/30/2020 11:56 pm CLINICAL HISTORY: COUGH Chest pain. COMPARISON: CHEST SINGLE VIEW dated 11/09/2013 FINDINGS: Portable technique limits examination quality. The lungs are grossly clear. The heart is normal in size. No displaced fractures. IMPRESSION: No acute intrathoracic process suspected.
[2020-08-31] MEDS: VITAMIN D 1000 UNIT TAB PO SCH (09:39)
[2020-08-31] MEDS ORDERED: ENOXAPARIN 40 MG/0.4 ML SQ SCH (09:39)
[2020-08-31] MEDS ORDERED: ACETAMINOPHEN 500 MG TAB PO PRN (09:39)
[2020-08-31] MEDS ORDERED: ONDANSETRON 4 MG/2 ML VIAL IV PRN (09:39)
[2020-08-31] MEDS: FOLIC ACID 1 MG TABLET PO SCH (10:10)
[2020-08-31] MEDS: THIAMINE HCL 100 MG TABLET PO SCH (10:10)
--- NOTE | 2020-08-31 10:35 | RAD REPORT ---
EXAM DESCRIPTION: CT CHEST WITHOUT CONTRAST. CLINICAL HISTORY: Cough COMPARISON: None. TECHNIQUE: Axial CT imaging of the chest performed. Reformatted coronal and sagittal images obtained . This exam was performed according to our departmental dose-optimization program which includes automa lennox exposure control, adjustment of the mA and/or kV according to patient size and/or use of iterativ e reconstruction technique FINDINGS: HEART/VESSELS: Heart is normal in size. No pericardial fluid. There is aneurysmal dilatat ion of the aortic root up to 4.6 cm. Mild aortic atherosclerosis. Normal caliber main pulmonary arter y. There are moderate coronary artery calcic effusions within the proximal left anterior descending a rtery. No pericardial fluid. MEDIASTINUM AND CAMI: There are scattered mediastinal lymph nodes. Enlarged subcarinal node is 1.9 x 1.3 x 2.8 cm. There is no filling defect within the central airways. Esophagus appears mildly thicke alli diffusely. Small hiatal hernia is present. LUNGS/PLEURA: There are several scattered subpleural groundglass opacities within the posterior righ t and left lower lobe, lingula, and anterior left upper lobe with areas of inter and intralobular sep trace thickening. There is no edema or pneumothorax. There is a small focus of faint groundglass densit ies in the anterior right upper lobe. There is no pneumothorax. No pleural fluid. CHEST WALL/SOFT TISSUES: Unremarkable thyroid. No axillary lymphadenopathy. Sternum is intact. There are bulky hypertrophic endplate degenerative changes within the lower thoracic spine. UPPER ABDOMEN: Included liver, gallbladder, spleen, pancreas appears normal. IMPRESSION: 1. Multifocal subpleural infiltrates predominantly within both lower lobes and lingula a nd minimally within the upper lobes. Commonly reported imaging features of viral pneumonia are presen t. Other processes such as influenza pneumonia and organizing pneumonia, as can be seen with drug tox icity and connective tissue disease, can cause a similar imaging pattern. PneTyp Reference: https://pubs.rsna.org/doi/full/10.1148/ryct.[email or web address] 2. Ascending aortic aneurysm of the aortic root up to 4.6 cm. 3. Mild subcarinal lymphadenopathy. 4. Mild diffuse esophageal thickening compatible with esophagitis. Small hiatal hernia. Electronically signed by: Claudia Sanchez DO 08/31/2020 12:26 AM CDT Due to temporary technical issues with the PACS/Fluency reporting system, reports are being signed by the in house radiologist without review as a courtesy to ensure prompt reporting. The interpreting r adiologist is fully responsible for the content of the report.
[2020-08-31 10:45] VITALS: BMI 26.4
--- NOTE | 2020-08-31 10:58 | P.CNS ---
Date of Consult: 08/31/20 Reason for Consult: Kearns virus pneumonia Chief Complaint: Fever History of Present Illness: Patient is 74 years of age was exposed to kearns virus as exposed to her members at the spiritism she is currently doing fine apart from fever he denies any shortness of breath oxygenation satisfactory minimal infiltrates Allergies lisinopril Allergy (Severe, Verified 08/31/20 09:15) Shortness of breath, Swelling - Past Medical/Surgical History Diabetic: No - Social History Alcohol use: No CD- Drugs: No Caffeine use: No Review of Systems 10-point ROS is otherwise unremarkable General: Weakness Physical Examination Temp Pulse Resp BP Pulse Ox 100.9 F 74 22 H 134/82 95 08/31/20 10:10 08/31/20 08:30 08/31/20 08:30 08/31/20 08:30 08/31/20 08:24 General: Alert HEENT: Atraumatic Neck: Supple Respiratory: Clear to auscultation bilaterally Laboratory Data (last 24 hrs) 08/30/20 23:27: PT 13.7 H, INR 1.16, APTT 33.9 08/30/20 23:27: WBC 4.0 L, Hgb 13.3 L, Hct 39.1 L, Plt Count 131 L 08/30/20 23:27: Sodium 132 L, Potassium 4.0, BUN 15, Creatinine 1.15, Glucose 125 H, Total Bilirubin 0.5, AST 47 H, ALT 41, Alkaline Phosphatase 55, Lipase 35 L - Problems (1) Coronavirus infection Current Visit: Yes Status: Acute Plan: Patient is 74 years of age admitted with fever animal peripheral infiltrates exposed to kearns virus hemodynamically stable oxygenation satisfactory CRP is less than 20 recommend discharge home on low-dose prednisone 10 mg twice a day multi vitamin supplementation follow up in a telephone visit next week PO2 on room air is 73 chest x-rays clear his infiltrates visible on a CT scan the peripheral ground-glass bilateral consistent with the kearns virus
--- NOTE | 2020-08-31 12:16 | P.HP ---
Certification for Inpatient Patient admitted to: Observation With expected LOS: <2 Midnights Patient will require the following post-hospital care: None Practitioner: I am a practitioner with admitting privileges, knowledge of patient current condition, hospital course, and medical plan of care. Services: Services provided to patient in accordance with Admission requirements found in Title 42 Section 412.3 of the Code of Federal Regulations Patient History Date of Service: 08/31/20 Primary Care Provider: [facility] Reason for admission: Fever History of Present Illness: 74-year-old male with history of hypertension. Patient [place] a [place]. Patient presented with increased shortness of breath, fever and cough. Patient reports developing symptoms last Saturday. He was seen at the [facility] and had a COVID 19 test performed. Over the weekend he start to have more shortness of breath and fever. He was informed recently that he was positive. Due to his worsening symptoms the patient came to the ER for further evaluation. In the ER patient evaluated. Vital signs stable but room-air saturations did d rop below 88%. Patient slightly tachypneic upon arrival. D-dimer 493, lactic acid normal. Troponin normal. CRP is slightly elevated at 13.5. White count 4.0, hemoglobin 13.3. Sodium 132, potassium 4.0. BUN 15, creatinine 1.15 with a GFR 62. Glucose [address] scan showed bilateral infiltrates indicative of COVID 19 infection. The patient was admitted for further evaluation and treatment. When I saw the patient ER, room-air saturations did drop below 85% positive room-air. Patient is stable this time. Allergies lisinopril Allergy (Severe, Verified 08/31/20 09:15) Shortness of breath, Swelling Home medications list reviewed: Yes - Past Medical/Surgical History Has patient received pneumonia vaccine in the past: Yes Diabetic: No -: Hypertension Past Surgical History: Reviewed- Non-Contributory Psychosocial/ Personal History: Patient lives at home. Patient is . - Family History Family History: Reviewed- Non-Contributory - Social History Smoking Status: Never smoker Alcohol use: No CD- Drugs: No Caffeine use: No Place of Residence: Home Review of Systems General: Fever, Chills, Weakness, Malaise, As per HPI Eyes: As per HPI ENT: Nose Congestion, As per HPI Respiratory: Cough, Shortness of Breath, SOB with Excertion, As per HPI Cardiovascular: Unremarkable Gastrointestinal: Unremarkable Genitourinary: Unremarkable Musculoskeletal: Unremarkable Integumentary: Unremarkable Neurological: Unremarkable Lymphatics: Unremarkable Physical Examination - Vital Signs Temperature: 100.9 F Blood Pressure: 142/62 Pulse: 84 Respirations: 20 Pulse Ox (%): 95 - Physical Exam General: Alert, In no apparent distress, Oriented x3, Cooperative HEENT: Atraumatic Neck: Supple Respiratory: Other (Some shortness of breath noted) Cardiovascular: Normal pulses Gastrointestinal: Normal bowel sounds, No guarding Integumentary: No tenderness/swelling, No erythema, No warmth, No cyanosis Neurological: Normal speech, Normal strength at 5/5 x4 extr, Normal tone, Normal affect - Studies Laboratory Data (last 24 hrs) 08/30/20 23:: PT 13.7 H, INR 1.16, APTT 33.9 08/30/20 23:27: WBC 4.0 L, Hgb 13.3 L, Hct 39.1 L, Plt Count 131 L 08/30/20 23:27: Sodium 132 L, Potassium 4.0, BUN 15, Creatinine 1.15, Glucose 125 H, Total Bilirubin 0.5, AST 47 H, ALT 41, Alkaline Phosphatase 55, Lipase 35 L Microbiology Data (last 24 hrs): 08/30/20 23:28 Nasopharnyx Influenza Type A Antigen Screen - Final 08/30/20 23:28 Nasopharnyx Influenza Type B Antigen Screen - Final 08/30/20 23:28 Throat Group A Streptococcus Rapid Screen - Final Assessment and Plan - Plan Impression: Acute respiratory failure with hypoxia secondary to bilateral COVID19 Hypertension GERD with hiatal hernia Plan: Acute respiratory failure with hypoxia secondary to bilateral COVID19: Patient will be admitted to the ICU COVID unit. Will place on oxygen to maintain sats above 93%. Will start IV steroids, thiamine, vitamin-D and melatonin. Patient had showed some improvement are ready with IV steroid. Will consider changing to oral after discussion with pulmonology was been consulted. Will provide DVT prophylaxis-Lovenox. [facility] Will also need to obtain and verify home medication and restart. Anticipate quick recovery by patient. Possible discharge as early as tomorrow pending lab and clinical evaluation. Will continue to reassess. Hypertension: Obtain and restart home medication GERD with hiatal hernia: CT scan showed small hiatal hernia. Will provide Pepcid. Discharge Plan: Home Plan to discharge in: 48 Hours - Advance Directives Does patient have a Living Will: No Does patient have a Durable POA for Healthcare: No - Code Status/Comfort Care Code Status Assessed: Yes (Patient is full code) Time Spent Managing Pts Care (In Minutes): 55
[2020-08-31 12:17] LABS: Urine Appearance CLEAR; Urine Bilirubin NEGATIVE (NEG); Urine Blood NEGATIVE (NEG); Urine Color YELLOW; Urine Glucose NEGATIVE (NEG); Urine Protein 1+ (NEG); Urine Urobilinogen 0.2 mg/dL (0.2-1.0)
[2020-08-31] MEDS ORDERED: METHYLPREDNISOLONE 125 MG INJ IV SCH (13:00)
[2020-08-31 13:05] LABS: Urine Microscopic Reflex ORDER UMIC
[2020-08-31 13:06] LABS: Urine Bacteria NONE SEEN /HPF (NONE SEEN); Urine Culture Reflex Order NOT NEEDED; Urine RBC <5 /HPF (NONE SEEN)
[2020-08-31] MEDS ORDERED: MELATONIN 3 MG TABLET PO SCH (21:00)
[2020-08-31] MEDS: predniSONE 20 MG TAB PO SCH (21:10)
[2020-08-31] MEDS: FAMOTIDINE 20 MG TAB PO SCH (21:11)
[2020-09-01 04:27] LABS: Absolute Lymphocytes (CBC) 0.7 K/uL (0.7-4.9); Basophils % 0.2 % (0-1.3); Hematocrit 39.1 % (39.6-49.0); MPV 8.6 fL (7.6-11.3); RBC Red Blood Cell Count 4.38 M/uL (4.33-5.43)
[2020-09-01 04:44] LABS: C-Reactive Protein 13.7 mg/L (<3.00); Ferritin 334.3 ng/mL (26-388); Magnesium 2.4 mg/dL (1.8-2.4); Potassium 4.6 mmol/L (3.5-5.1)
--- NOTE | 2020-09-01 07:23 | P.DS ---
Admission Date: 08/31/20 Discharge Date: 09/01/20 Primary Care Provider: [facility] Disposition: ROUTINE DISCHARGE Discharge Condition: GOOD Reason for Admission: Fever Consultations: Pulmonary-Dr. Curran Procedures: CT Scan: FINDINGS: HEART/VESSELS: Heart is normal in size. No pericardial fluid. There is aneurysmal dilatation of the aortic root up to 4.6 cm. Mild aortic atherosclerosis. Normal caliber main pulmonary artery. There are moderate coronary artery calcic effusions within the proximal left anterior descending artery. No pericardial fluid. MEDIASTINUM AND ACMI: There are scattered mediastinal lymph nodes. Enlarged subcarinal node is 1.9 x 1.3 x 2.8 cm. There is no filling defect within the central airways. Esophagus appears mildly thickened diffusely. Small hiatal hernia is present. LUNGS/PLEURA: There are several scattered subpleural groundglass opacities within the posterior right and left lower lobe, lingula, and anterior left upper lobe with areas of inter and intralobular septal thickening. There is no edema or pneumothorax. There is a small focus of faint groundglass densities in the anterior right upper lobe. There is no pneumothorax. No pleural fluid. CHEST WALL/SOFT TISSUES: Unremarkable thyroid. No axillary lymphadenopathy. Sternum is intact. There are bulky hypertrophic endplate degenerative changes within the lower thoracic spine. UPPER ABDOMEN: Included liver, gallbladder, spleen, pancreas appears normal. IMPRESSION: 1. Multifocal subpleural infiltrates predominantly within both lower lobes and lingula and minimally within the upper lobes. Commonly reported imaging features of viral pneumonia are present. Other processes such as influenza pneumonia and organizing pneumonia, as can be seen with drug toxicity and connective tissue disease, can cause a similar imaging pattern. PneTyp Reference: https://pubs.rsna.org/doi/full/10.1148/ryct.[email or web address] 2. Ascending aortic aneurysm of the aortic root up to 4.6 cm. 3. Mild subcarinal lymphadenopathy. 4. Mild diffuse esophageal thickening compatible with esophagitis. Small hiatal hernia. Medical Problem List: Acute respiratory failure with hypoxia secondary to bilateral COVID19 Hypertension GERD with small hiatal hernia with CT scan showing some thickening to the esophagus suggestive of esophagitis CT scan showing ascending aortic aneurysm of the aortic root up to 4.6 cm Crohn's History of pulmonary embolism on chronic anticoagulation Gout Chronic pain Brief History of Present Illness: 74-year-old male with history of hypertension. Patient is a [facility]. Patient presented with increased shortness of breath, fever and cough. Patient reports developing symptoms last Saturday. He was seen at the [facility] and had a COVID 19 test performed. Over the weekend he start to have more shortness of breath and fever. He was informed recently that he was positive. Due to his worsening symptoms the patient came to the ER for further evaluation. In the ER patient evaluated. Vital signs stable but room-air saturations did drop below 88%. Patient slightly tachypneic upon arrival. D-dimer 493, lactic acid normal. Troponin normal. CRP is slightly elevated at 13.5. White count 4.0, hemoglobin 13.3. Sodium 132, potassium 4.0. BUN 15, creatinine 1.15 with a GFR 62. Glucose [address] scan showed bilateral infiltrates indicative of COVID 19 infection. The patient was admitted for further evaluation and treatment. When I saw the patient ER, room-air saturations did drop below 85% positive room-air. Patient is stable this time. Hospital Course: Patient presented with dyspnea, cough secondary to acute respiratory failure with hypoxia related to bilateral COVID 19 pneumonia. He was recently diagnosed at the [facility]. The patient required hospitalization. He has done well with treatment. The patient required very little oxygen. Pulmonology was consulted for further recommendation. At discharge patient without significant shortness of breath. Patient still with mild cough. At discharge patient will continue with prednisone 10 mg 1 pill twice daily for 2 weeks. Will also provide a limited supply of Tylenol with codeine as needed for cough. Patient may continue with his vitamin supplementation including vitamin D3 and B12. Patient encouraged to use incentive spirometer. Patient was evaluated for the need for home oxygen at discharge. If patient qualifies patient will continue with home oxygen to maintain sats above 93%. At discharge patient did not qualify for oxygen. At discharge is recommended that the patient follow up with pulmonology within 1 week. Pulmonology will follow patient closely and determine when the patient can be taken off steroid medication and isolation. For now patient will continue with isolation as recommended by the CDC guidelines. Education on COVID 19 and CDC guidelines on isolation will be provided. Recommend to continue social distancing, face mask use and hand washing. Patient with underlying hypertension. This has remained stable. At discharge he will continue with losartan 50 mg 1 pill twice daily. Recommend to maintain blood pressure less than 150/80. Further adjustment can be done by his PCP. Patient with GERD. CT scan revealed small hiatal hernia and possible esophagitis. At discharge patient may continue with his medication of Prilosec 20 mg daily. Recommendation is for the patient to follow up with GI as an outpatient to consider EGD in the near future to further evaluate. Patient with Crohn's. This has remained stable. At discharge he will continue with cholestyramine 4 g 3 times a day and Imodium 2 mg twice daily. Recommend follow up with GI to further evaluate and address. Patient with history of pulmonary embolism. Patient on chronic anti coagulation therapy. At discharge patient will continue with Eliquis 5 mg [address] scan also revealed an ascending aortic aneurysm of the aortic root up to 4.6 cm. Recommend follow up with cardiology as an outpatient to further monitor and address. Patient may require repeat CT scan or ultrasound to follow this closely. Education on ascending aortic aneurysm will be provided. Patient with history of gout. At discharge patient will continue with allopurinol 100 mg daily. Patient with chronic pain. At discharge patient will continue with gabapentin 300 mg 1 pill twice daily. Patient will continue with his other supplementation including magnesium 420 mg 1 pill twice daily. Vital Signs/Physical Exam: Temp Pulse Resp BP Pulse Ox 98.3 F 82 22 H 150/90 H 89 L 09/01/20 04:00 09/01/20 06:00 09/01/20 05:00 09/01/20 06:00 09/01/20 06:00 General: Alert, In no apparent distress, Oriented x3, Cooperative HEENT: Atraumatic Neck: Supple Respiratory: Other (Patient appears without any respiratory distress. Some cough noted) Cardiovascular: Normal pulses Integumentary: No tenderness/swelling, No erythema, No warmth, No cyanosis Neurological: Normal speech, Normal strength at 5/5 x4 extr, Normal tone, Normal affect Laboratory Data at Discharge: WBC 4.2 K/uL (4.3-10.9) L 09/01/20 03:33 Hgb 13.6 g/dL (13.6-17.9) 09/01/20 03:33 Hct 39.1 % (39.6-49.0) L 09/01/20 03:33 Plt Count 129 K/uL (152-406) L 09/01/20 03:33 PT 13.7 SECONDS (9.5-12.5) H 08/30/20 23:27 INR 1.16 08/30/20 23:27 APTT 33.9 SECONDS (24.3-36.9) 08/30/20 23:27 Sodium 133 mmol/L (136-145) L 09/01/20 03:33 Potassium 4.6 mmol/L (3.5-5.1) 09/01/20 03:33 BUN 21 mg/dL (7-18) H 09/01/20 03:33 Creatinine 0.89 mg/dL (0.55-1.3) 09/01/20 03:33 Glucose 152 mg/dL (74-106) H 09/01/20 03:33 Magnesium 2.4 mg/dL (1.8-2.4) 09/01/20 03:33 Total Bilirubin 0.5 mg/dL (0.2-1.0) 08/30/20 23:27 AST 47 U/L (15-37) H 08/30/20 23:27 ALT 41 U/L (12-78) 08/30/20 23:27 Alkaline Phosphatase 55 U/L (45-117) 08/30/20 23: Lipase 35 U/L (73-393) L 08/30/20 23:27 Home Medications: Allopurinol 100 mg PO DAILY 08/31/20 Apixaban [Eliquis] 5 mg PO BID 08/31/20 Cholecalciferol (Vitamin D3) [Vitamin D3] 1,000 unit PO DAILY 08/31/20 Cholestyramine/Aspartame [Cholestyramine Light Packet] 4 gm PO TID 08/31/20 Cyanocobalamin (Vitamin B-12) [B-12] 1,000 mcg PO DAILY 08/31/20 Gabapentin 300 mg PO BID 08/31/20 Loperamide [Imodium*] 2 mg PO BID 08/31/20 Losartan Potassium [Cozaar*] 50 mg PO BID 08/31/20 Magnesium Oxide 420 mg PO BID 08/31/20 Omeprazole 20 mg PO DAILY 08/31/20 Codeine/APAP [Tylenol W/Codeine Elixir] 5 ml PO BID PRN #1 bottle 09/01/20 predniSONE [Deltasone*] 10 mg PO BID #28 tab 09/01/20 New Medications: predniSONE [Deltasone*] 10 mg PO BID #28 tab Codeine/APAP [Tylenol W/Codeine Elixir] 5 ml PO BID PRN #1 bottle PRN Reason: Cough Patient Discharge Instructions: 1. Recommend follow up with PCP in 1 week to follow up this hospitalization. 2. Patient presented with dyspnea, cough secondary to acute respiratory failure with hypoxia related to bilateral COVID 19 pneumonia. He was [facility]. The patient required hospitalization. He has done well with treatment. The patient required very little oxygen. Pulmonology was consulted for further recommendation. At discharge patient without significant shortness of breath. Patient still with mild cough. At discharge patient will continue with prednisone 10 mg 1 pill twice daily for 2 weeks. A limited supply of Tylenol with codeine will be provided to be use as needed twice daily. Patient may continue with his vitamin supplementation including vitamin D3 and B12. Patient encouraged to use incentive spirometer. Patient was evaluated for the need for home oxygen at discharge. If patient qualifies patient will continue with home oxygen to maintain sats above 93%. At discharge patient did not qualify for oxygen. At discharge is recommended that the patient follow up with pulmonology within 1 week. Pulmonology will follow patient closely and determine when the patient can be taken off steroid medication and isolation. For now patient will c ontinue with isolation as recommended by the CDC guidelines. Education on COVID 19 and CDC guidelines on isolation will be provided. Recommend to continue social distancing, face mask use and hand washing. 3. Patient with underlying hypertension. This has remained stable. At discharge he will continue with losartan 50 mg 1 pill twice daily. Recommend to maintain blood pressure less than 150/80. Further adjustment can be done by his PCP. 4. Patient with GERD. CT scan revealed small hiatal hernia and possible esophagitis. At discharge patient may continue with his medication of Prilosec 20 mg daily. Recommendation is for the patient to follow up with GI as an outpatient to consider EGD in the near future to further evaluate. 5. Patient with Crohn's. This has remained stable. At discharge he will continue with cholestyramine 4 g 3 times a day and Imodium 2 mg twice daily. Recommend follow up with GI to further evaluate and address. 6. Patient with history of pulmonary embolism. Patient on chronic anti coagulation therapy. At discharge patient will continue with Eliquis 5 mg 1 pill twice daily. 7. CT scan also revealed an ascending aortic aneurysm of the aortic root up to 4.6 cm. Recommend follow up with cardiology as an outpatient to further monitor and address. Patient may require repeat CT scan or ultrasound to follow this closely. Education on ascending aortic aneurysm will be provided. 8. Patient with history of gout. At discharge patient will continue with allopurinol 100 mg daily. 9. Patient with chronic pain. At discharge patient will continue with gabapentin 300 mg 1 pill twice daily. 10. Patient will continue with his other supplementation including magnesium 420 mg 1 pill twice daily. Diet: AHA Activity: Ad tamanna Followup: NONE,NONE [Primary Care Provider] - Time spent managing pt's care (in minutes): 55
[2020-09-01] MEDS: FOLIC ACID 1 MG TABLET PO SCH (08:27)
[2020-09-01] MEDS: VITAMIN D 1000 UNIT TAB PO SCH (08:27)
[2020-09-01] MEDS: FAMOTIDINE 20 MG TAB PO SCH (08:27)
[2020-09-01] MEDS: predniSONE 20 MG TAB PO SCH (08:27)
[2020-09-01] MEDS: THIAMINE HCL 100 MG TABLET PO SCH (08:46)
[2020-09-01] MEDS ORDERED: APIXABAN 5 MG TABLET PO SCH (09:00)
[2020-09-01] MEDS ORDERED: CHOLESTYRAMINE/ASP 4 GM/PKT PO SCH (09:00)
[2020-09-01] MEDS ORDERED: LOSARTAN POTASSIUM 50 MG TABLET PO SCH (09:00)
[2020-09-01] MEDS ORDERED: LOPERAMIDE HCL 2 MG CAPSULE PO SCH (09:00)
[2020-09-01] MEDS ORDERED: CYANOCOBALAMIN 1,000 MCG TAB PO SCH (09:00)
[2020-09-01] MEDS ORDERED: GABAPENTIN 300 MG CAP PO SCH (09:00)
[2020-09-01] MEDS ORDERED: allopurinoL 100 MG TAB PO SCH (09:00)
[2020-09-01] MEDS ORDERED: VITAMIN D 1000 UNIT TAB PO SCH (09:00)
[2020-09-01] MEDS ORDERED: MAGNESIUM OXIDE 400 MG TAB PO SCH (09:00)
[2020-09-01 09:52] VITALS: BP 136/83; TEMP 98.2
[2020-09-01 11:29] VITALS: O2SAT 95
[2020-09-02] MEDS ORDERED: PANTOPRAZOLE 40MG TABLET PO SCH (06:30)
== END 2020-09-01 10:20 | disposition home or self-care (01) | DRG 177 ==
LOC: ER 22:32 → ERHOLD 08-31 07:33 → 3RD-ICU 08-31 08:31
PROVIDERS: ADMIT Family Medicine; ATTEND Family Medicine
DX: U07.1 COVID-19 (principal); J12.89 Other viral pneumonia; J96.01 Acute respiratory failure with hypoxia; K50.90 Crohn's disease, unspecified, without complications; I10 Essential (primary) hypertension; K44.9 Diaphragmatic hernia without obstruction or gangrene; M10.9 Gout, unspecified; G89.29 Other chronic pain; K21.00 Gastro-esophageal reflux disease with esophagitis, without bleeding; I71.2 Thoracic aortic aneurysm, without rupture; Z86.711 Personal history of pulmonary embolism; Z79.52 Long term (current) use of systemic steroids; Z79.01 Long term (current) use of anticoagulants; Z88.1 Allergy status to other antibiotic agents; Z79.899 Other long term (current) drug therapy; Z88.8 Allergy status to other drugs, medicaments and biological substances
CPT/HCPCS: 36415; 71045; 71250; 80048; 80076; 81003; 81015; 82728; 82805; 83605; 83690; 83735; 84145; 84484; 85025; 85379; 85610; 85730; 86140; 87040; 87070; 87081; 87804; 93005; 94010; 96374; 99285; J1650; J2920; J2930; J7512; U0003

== ENCOUNTER 2020-09-23 15:25 | Inpatient (IN) | payer OTHER ==
[2020-09-23] MEDS ORDERED: NA CHLORIDE 0.9% 500 ML ONE (16:33)
[2020-09-23] MEDS ORDERED: HYDROCODONE/CHLORPHEN 5 ML/OSYR ONE (16:33)
[2020-09-23 16:37] LABS: Absolute Lymphocytes (CBC) 1.4 K/uL (0.7-4.9); Basophils % 1.1 % (0-1.3); Hematocrit 42.8 % (39.6-49.0); Lymphocytes % 23.7 % (15.3-44.8); MPV 7.7 fL (7.6-11.3); RBC Red Blood Cell Count 4.75 M/uL (4.33-5.43)
--- NOTE | 2020-09-23 16:45 | RAD REPORT ---
EXAM DESCRIPTION: RAD - Chest Single View - 09/23/2020 4:27 pm CLINICAL HISTORY: Cough;Dyspneahistory positive COVID test August 26 COMPARISON: Portable chest August 30 TECHNIQUE: AP portable chest image was obtained 09/23/2020 4:27 pm . FINDINGS: Lung volumes are low. Stranding at the right base is probably atelectasis due to the low l ronak volumes. No convincing evidence for a right lung field infiltrate. Interstitial and alveolar opac ity present in the lower left lung field obscuring the left hemidiaphragm and portions of the left he art border. Upper left lung field is clear. Failure and volume overload are not suspected. Heart and vasculature are normal. No measurable pleural effusion and no pneumothorax. No acute bony abnormality seen. No acute aortic findings suspected. IMPRESSION: Left lung base opacification suspicious for pneumonia.
[2020-09-23 16:49] LABS: Protime INR 1.11
[2020-09-23 16:56] LABS: BUN Blood Urea Nitrogen 10 mg/dL (7-18); Bicarbonate 28 mmol/L (21-32); Glucose Level 98 mg/dL (74-106); Magnesium 2.3 mg/dL (1.8-2.4); NT PRO-BNP 157 pg/mL (<450); Potassium 4.7 mmol/L (3.5-5.1); Sodium Level 137 mmol/L (136-145); Troponin (Emerg Dept Use Only) < 0.02 ng/mL (0.0-0.045)
--- NOTE | 2020-09-23 17:05 | ER ---
Nurse's Notes [facility] Name: Joon Turcios Jr Age: 74 yrs Sex: Male : 1945 Arrival Date: 09/23/2020 Time: 15:28 Bed 15 Private MD: Diagnosis: Pneumonia, unspecified organism;Hypoxemia;Dyspnea, unspecified Presentation: 09/23 15:42 Chief complaint: Patient states: Tested positive for COVID 08/26. Began to feel better ss 09/10, but over the past two days the cough and shortness of breath that had been lingering has gotten much worse. Also reports low grade fever x 2-3 days. Coronavirus screen: cough unrelated to allergies, shortness of breath, Client presents with at least one sign or symptom that may indicate coronavirus-19. Standard/surgical mask placed on the client. Provider contacted for isolation considerations. Ebola Screen: Patient denies exposure to infectious person. Patient denies travel to an Ebola-affected area in the 21 days before illness onset. Initial Sepsis Screen: Does the patient meet any 2 criteria? RR > 20 per min. HR > 90 bpm. Does the patient have a suspected source of infection? Yes: Productive cough/pneumonia. Risk Assessment: Do you want to hurt yourself or someone else? Patient reports no desire to harm self or others. Onset of symptoms was August 26, 2020. 15:42 Acuity: ISRRAEL 2 ss 15:42 Method Of Arrival: Ambulatory ss Triage Assessment: 18:27 General: Appears in no apparent distress. Behavior is calm, cooperative, appropriate ll1 for age. Respiratory: the patient has mild shortness of breath. Respiratory: Breath sounds are diminished bilaterally. Onset: The symptoms/episode began/occurred over 1 week. Historical: - Allergies: 15:46 Lisinopril; ss 15:46 Streptomycin; ss 15:46 unkn HTN med; ss - PMHx: 15:46 GERD; crohns disease; Hypertension; neuropathy; ss - PSHx: 15:46 abdominal surgery; Ileostomy and reversal; ss - Immunization history:: Adult Immunizations up to date. - Social history:: Smoking status: Patient denies any tobacco usage or history of. - Family history:: not pertinent. - Hospitalizations: : No recent hospitalization is reported. Screenin:26 Abuse screen: Denies threats or abuse. Nutritional screening: No deficits noted. ll1 Tuberculosis screening: No symptoms or risk factors identified. Fall Risk IV access (20 points). Gait- Weak (10 pts.). Total Santamaria Fall Scale indicates Low Risk Score (25-44 pts). Fall prevention measures have been instituted. Side Rails Up X 2 Placed close to Nursing Station Frequent Obs/Assesments occuring Family Present and informed to notify staff if they need to leave bedside As available Patient and Family Educated on Fall Prevention Program and strategies. Assessment: 16:00 General: Appears uncomfortable, Behavior is calm, cooperative, appropriate for age. ll1 Pain: Denies pain. Neuro: No deficits noted. Cardiovascular: Heart tones S1 S2 Capillary refill < 3 seconds Clubbing of nail beds is absent Patient's skin is warm and dry. Cardiovascular: Reports fatigue, shortness of breath, Rhythm is regular. Respiratory: Reports shortness of breath cough that is Airway is patent Trachea midline Respiratory effort is even, labored, Respiratory pattern is symmetrical, tachypnea Breath sounds are diminished bilaterally. GI: Abdomen is flat, Bowel sounds present X 4 quads. Abd is soft and non tender X 4 quads. Reports nausea. Musculoskeletal: Circulation, motion, and sensation intact. Capillary refill < 3 seconds, Reports weakness in generalized weakness and malaise. 17:00 Reassessment: Patient and/or family updated on plan of care and expected duration. Pain ll1 level reassessed. Patient states feeling better. 17:28 Reassessment: hospitalist Dr. Merino at bedside at this time. tw2 19:15 Reassessment: Patient and/or family updated on plan of care and expected duration. Pain cr4 level reassessed. Patient states feeling better. Respiratory: Reports shortness of breath at rest Airway is patent Trachea midline Respiratory effort is even, labored, Respiratory pattern is symmetrical, Breath sounds are diminished bilaterally. 20:03 Reassessment: Patient and/or family updated on plan of care and expected duration. Pain cr4 level reassessed. notified he was being dmitted to ICU bed 7.. Vital Signs: 15:42 BP 133 / 79; Pulse 111; Resp 28; Temp 98.5(O); Pulse Ox 86% on R/A; Weight 90.72 kg; ss Height 6 ft. 1 in. (185.42 cm); Pain 0/10; 17:56 BP 152 / 83; Pulse 80; Resp 20; Pulse Ox 94% on 2 lpm NC; ll1 18:22 BP 146 / 94; Pulse 81; Resp 20; Pulse Ox 100% on 2 lpm NC; ll1 19:15 BP 165 / 96; Pulse 82; Resp 22; Temp 98.4; Pulse Ox 93% ; Pain 0/10; cr4 15:42 Body Mass Index 26.39 (90.72 kg, 185.42 cm) ED Course: 15:28 Patient arrived in ED. ds1 15:46 Triage completed. ss 15:46 Arm band placed on left wrist. ss 15:48 Smooth Renteria MD is Attending Physician. rn 15:55 Lynn Herrera RN is Primary Nurse. ll1 16:00 Patient has correct armband on for positive identification. Placed in gown. Bed in low ll1 position. Call light in reach. Side rails up X2. athletic monitor on. Pulse ox on. NIBP on. 16:21 Radiology exam delayed due to IV insertion attempt and/or patient not having vm2 appropriate IV at this time. 16:27 XRAY CXR (1 view) In Process Unspecified. EDMS 16:30 Missed attempt(s): 20 gauge in right antecubital area. Bleeding controlled, band aid ll1 applied, catheter tip intact. 16:59 Missed attempt(s): 20 gauge in left upper arm. Bleeding controlled, band aid applied, tw2 catheter tip intact. Inserted saline lock: 22 gauge in right forearm, using aseptic technique. 17:04 Redd Merino is Hospitalizing Provider. rn 17:15 CT Chest For PE Angio In Process Unspecified. EDMS 19:15 Repeat lab(s) drawn. by al, sent to lab. jp3 19:58 No provider procedures requiring assistance completed. Patient admitted, IV remains in cr4 place. Administered Medications: 16:35 Drug: Tussionex Pennkinetic ER 5 ml {Note: rass 0.} Route: PO; ll1 17:55 Follow up: Response: No adverse reaction; RASS: Alert and Calm (0) ll1 17:03 Drug: NS 0.9% 500 ml Route: IV; Rate: bolus; Site: left forearm; ll1 17:55 Follow up: Response: No adverse reaction; RASS: Alert and Calm (0); IV Status: ll1 Completed infusion; IV Intake: 500ml 17:55 Drug: LevaQUIN 750 mg Volume: 150 ml; Route: IVPB; Infused Over: 90 mins; Site: left ll1 forearm; 20:57 Follow up: Response: No adverse reaction; IV Status: Completed infusion; IV Intake: cr4 150ml Intake: 17:55 IV: 500ml; Total: 500ml. ll1 20:57 IV: 150ml; Total: 650ml. cr4 Outcome: 17:05 Decision to Hospitalize by Provider. rn 19:58 Admitted to ICU accompanied by nurse, accompanied by tech, family with patient, via cr4 stretcher, room ICU 7, with oxygen, Report called to gave report to Yelena Lawson 19:58 Condition: stable 19:58 Instructed on the need for admit, Demonstrated understanding of instructions. 20:31 Patient left the ED. cr4 Signatures: Dispatcher [employer] EDMS Mandie Abarca dsMarissa Martin RN RN cr4 Smooth Renteria MD MD rn Smirch, Shelby, RN RN ss Wise, Tara, RN RN tw2 McGuire, Victoria vm2 Pisarski, Jacob jp3 Lynn Herrera RN RN ll1 Corrections: (The following items were deleted from the chart) 09/24 05:36 09/23 19:15 BP 79 / ???; Pulse 82bpm; Resp 22bpm; Pulse Ox 93%; Temp 98.4F; Pain 0/10; cr4 cr4
--- NOTE | 2020-09-23 17:05 | EDPHYS ---
Physician Documentation [facility] Name: Joon Turcios Jr Age: 74 yrs Sex: Male : 1945 Arrival Date: 09/23/2020 Time: 15:28 Bed 15 Private MD: ED Physician Smooth Renteria HPI: 09/23 16:03 This 74 yrs old Male presents to ER via Ambulatory with complaints of Cough - rn Covid +, Shortness Of Breath, Weakness. 16:03 The patient or guardian reports cough, difficulty breathing. rn 16:04 Onset: The symptoms/episode began/occurred 3 day(s) ago. Severity of symptoms: At their rn worst the symptoms were moderate, in the emergency department the symptoms are unchanged. Modifying factors: The symptoms are alleviated by nothing, the symptoms are aggravated by nothing. Associated signs and symptoms: Pertinent positives: fever, rhinorrhea, Pertinent negatives: vomiting. The patient has experienced a previous episode. The patient has been recently seen by a physician: The patient has been recently been admitted at [facility]. Reports had COVID last month, admitted, felt better 2 weeks ago, now having productive cough and sob for last 2-3 days. + fever and chills. No hemoptysis. . Historical: - Allergies: 15:46 Lisinopril; ss 15:46 Streptomycin; ss 15:46 unkn HTN med; ss - PMHx: 15:46 GERD; crohns disease; Hypertension; neuropathy; ss - PSHx: 15:46 abdominal surgery; Ileostomy and reversal; ss - Immunization history:: Adult Immunizations up to date. - Social history:: Smoking status: Patient denies any tobacco usage or history of. - Family history:: not pertinent. - Hospitalizations: : No recent hospitalization is reported. ROS: 16:04 Constitutional: + fever and chills Eyes: Negative for injury, pain, redness, and rn hematology, ENT: + nasal congestion Neck: Negative for injury, pain, and swelling, Cardiovascular: Negative for chest pain, palpitations, and edema, Respiratory: + sob and cough Abdomen/GI: Negative for abdominal pain, nausea, vomiting, diarrhea, and constipation, MS/Extremity: Negative for injury and deformity, Skin: Negative for injury, rash, and discoloration, Neuro: Negative for headache, numbness, tingling, and seizure. Exam: 16:04 Constitutional: This is a well developed, well nourished patient who is awake, alert, rn + tachypneic and frequent cough Head/Face: Normocephalic, atraumatic. Eyes: Pupils equal round and reactive to light, extra-ocular motions intact. Lids and lashes normal. Conjunctiva and sclera are non-icteric and not injected. Cornea within normal limits. Periorbital areas with no swelling, redness, or edema. ENT: no stridor Cardiovascular: Tachycardic, regular Respiratory: + tachypneic, frequent coughing, no retractions. Abdomen/GI: soft, non-tender Skin: Warm, dry MS/ Extremity: Pulses equal, no cyanosis. Neuro: Awake and alert, GCS 15 Vital Signs: 15:42 BP 133 / 79; Pulse 111; Resp 28; Temp 98.5(O); Pulse Ox 86% on R/A; Weight 90.72 kg; ss Height 6 ft. 1 in. (185.42 cm); Pain 0/10; 17:56 BP 152 / 83; Pulse 80; Resp 20; Pulse Ox 94% on 2 lpm NC; ll1 18:22 BP 146 / 94; Pulse 81; Resp 20; Pulse Ox 100% on 2 lpm NC; ll1 19:15 BP 165 / 96; Pulse 82; Resp 22; Temp 98.4; Pulse Ox 93% ; Pain 0/10; cr4 15:42 Body Mass Index 26.39 (90.72 kg, 185.42 cm) ss MDM: 15:48 Patient medically screened. rn 17:03 Differential Diagnosis: Bronchitis Upper Respiratory Infection Viral Syndrome rn Pneumonia. Data reviewed: vital signs, nurses notes, lab test result(s), EKG, radiologic studies, plain films, and as a result, I will admit patient. Counseling: I had a detailed discussion with the patient and/or guardian regarding: the historical points, exam findings, and any diagnostic results supporting the discharge/admit diagnosis, lab results, radiology results, the need for further work-up and treatment in the hospital. Response to treatment: the patient's symptoms have mildly improved after treatment, and as a result, I will admit patient. Admission orders: after a detailed discussion of the patient's condition and case, the admit orders are written by me. ED course: Pt with Left lower lobe pneumonia, will admit due to pneumonia with oxygen requirement. CT PE pending, already on eliquis, and admitted to Dr. Merino. . 09/23 16:00 Order name: Blood Culture Adult (2) rn 09/23 16:00 Order name: BMP; Complete Time: 16:57 rn 09/23 16:00 Order name: CBC with Diff; Complete Time: 16:57 rn 09/23 16:00 Order name: Magnesium; Complete Time: 16:57 rn 09/23 16:00 Order name: NT PRO-BNP; Complete Time: 16:57 rn 09/23 16:00 Order name: PT-INR; Complete Time: 16:57 rn 09/23 16:00 Order name: CT Chest For PE Angio; Complete Time: 17:38 09/23 16:00 Order name: Ptt, Activated; Complete Time: 16:58 09/23 16:00 Order name: Troponin (emerg Dept Use Only); Complete Time: 16:58 09/23 16:03 Order name: Procalcitonin; Complete Time: 17:38 09/23 16:12 Order name: Lactate; Complete Time: 16:57 09/23 17:21 Order name: COVID-19 eb 09/23 19:07 Order name: SARS-COV-2 RT PCR EDMN 09/23 19:51 Order name: Lactate Sepsis 2 HR Follow-up EDMN 09/23 16:00 Order name: XRAY CXR (1 view); Complete Time: 16:58 rn 09/23 16:00 Order name: EKG; Complete Time: 16:01 rn 09/23 16:00 Order name: Cardiac monitoring; Complete Time: 17:04 rn 09/23 16:00 Order name: EKG - Nurse/Tech; Complete Time: 17:04 rn 09/23 16:00 Order name: IV Saline Lock; Complete Time: 16:16 rn 09/23 16:00 Order name: Labs collected and sent; Complete Time: 16:16 rn 09/23 16:00 Order name: O2 Per Protocol; Complete Time: 16:16 rn 09/23 16:00 Order name: O2 Sat Monitoring; Complete Time: 16:16 rn Administered Medications: 16:35 Drug: Tussionex Pennkinetic ER 5 ml {Note: rass 0.} Route: PO; ll1 17:55 Follow up: Response: No adverse reaction; RASS: Alert and Calm (0) [facility] 17:03 Drug: NS 0.9% 500 ml Route: IV; Rate: bolus; Site: left forearm; ll1 17:55 Follow up: Response: No adverse reaction; RASS: Alert and Calm (0); IV Status: ll1 Completed infusion; IV Intake: 500ml 17:55 Drug: LevaQUIN 750 mg Volume: 150 ml; Route: IVPB; Infused Over: 90 mins; Site: left ll1 forearm; 20:57 Follow up: Response: No adverse reaction; IV Status: Completed infusion; IV Intake: cr4 150ml Disposition: 09/23/20 17:05 Hospitalization ordered by Redd Merino for Inpatient Admission. Preliminary diagnosis are Pneumonia, unspecified organism, Hypoxemia, Dyspnea, unspecified. - Bed requested for Intensive Care Unit. - Status is Inpatient Admission. cr4 - Condition is Stable. - Problem is new. - Symptoms have improved. Signatures: Dispatcher [employer] EDEmilia Adler RN RN dw Marissa Bynum RN RN cr4 Smooth Renteria MD MD rn Smirch, Shelby, RN RN ss Lewis, Lynsay RN RN ll1 Corrections: (The following items were deleted from the chart) 19:23 17:05 Hospitalization Ordered by Redd Merino for Inpatient Admission. Preliminary dw diagnosis is Pneumonia, unspecified organism; Hypoxemia; Dyspnea, unspecified. Bed requested for Telemetry/MedSurg (Inpatient). Status is Inpatient Admission. Condition is Stable. Problem is new. Symptoms have improved. rn 20:31 19:23 09/23/2020 17:05 Hospitalization Ordered by Redd Merino for Inpatient cr4 Admission. Preliminary diagnosis is Pneumonia, unspecified organism; Hypoxemia; Dyspnea, unspecified. Bed requested for Intensive Care Unit. Status is Inpatient Admission. Condition is Stable. Problem is new. Symptoms have improved. dw
--- NOTE | 2020-09-23 17:36 | RAD REPORT ---
EXAM DESCRIPTION: CT - Chest For Pe Angio - 09/23/2020 5:14 pm CLINICAL HISTORY: Cough;Dyspnea , COVID positive, low-grade fever COMPARISON: Thorax Wo Con dated 08/30/2020; Chest Single View dated 09/23/2020 TECHNIQUE: Dynamically enhanced 2 mm Thick images of the chest were obtained during administration o f approximately 150mL Isovue 370 IV contrast. Coronal and oblique MIP reconstruction images were gene rated and reviewed. Exam utilizes a protocol to evaluate the pulmonary arterial tree. All CT scans are performed using dose optimization technique as appropriate and may include automated exposure control or mA/KV adjustment according to patient size. FINDINGS: No pulmonary emboli are identified. The aorta as imaged shows no acute finding. Ascending thoracic aorta is approximately 4.5 cm in maxim um diameter. Aortic arch is 3.1 cm in diameter with the descending thoracic aorta slowly tapering. No pericardial thickening or effusion. A few patchy subpleural areas of ground-glass opacification present in the each upper lobe. Ground-gl ass opacification is more pronounced at the base of the lingula. Lower lobes show ground-glass opacif ication along much of the posterior subpleural margins. Eighty each base there is a more consolidated appearance to the opacification. No endobronchial lesions. No solid or suspicious mass. A few small sub pleural ground-glass opacities are present in the right middle lobe. No pleural effusion or pleur al thickening. No mediastinal or hilar suspicious masses. No chest wall masses or abnormal axillary lymphadenopathy. Benton of the esophagus appear prominent. Esophagus is mildly dilated. No asymmetric wall thickening o r mass identified. IMPRESSION: No pulmonary emboli identified. Multifocal subpleural ground-glass opacification primarily in the lower lobes and lingula. Findings a re much more pronounced than seen on the August 31 imaging. Lung parenchymal findings match with commonly reported features of viral pneumonia including COVID-19 pneumonia.Influenza pneumonia and organizing pneumonia can also have a similar appearance. Ascending thoracic aorta measures 4.5 cm in diameter similar to the very recent comparison. No acute aortic finding. Esophageal benton appear thickened with the esophagus mildly dilated. This is similar to comparison no asymmetric wall thickening or mass seen.
--- NOTE | 2020-09-23 17:44 | P.HP ---
Certification for Inpatient Patient admitted to: Inpatient With expected LOS: >2 Midnights Practitioner: I am a practitioner with admitting privileges, knowledge of patient current condition, hospital course, and medical plan of care. Services: Services provided to patient in accordance with Admission requirements found in Title 42 Section 412.3 of the Code of Federal Regulations Patient History Date of Service: 09/23/20 Reason for admission: Shortness of breath History of Present Illness: 74-year-old gentleman with a history of hypertension recently hospitalized for COVID pneumonia and discharged with prednisone and Eliquis anticoagulation 3 weeks ago presented emergency department with a complaint of shortness of breath and cough productive of whitish sputum. Patient states he got better after discharge but over the past few days have been influenced in shortness of breath and coughing without cessation. His oxygen saturation in the emergency department swells in the mid 80s on room air. Chest x-ray and CTA thorax demonstrating worsening multifocal infiltrates with ground glass appearance suggestive of viral pneumonia. Repeat test for COVID 19 has been requested in the ED. Patient is admitted for further management. Allergies lisinopril Allergy (Severe, Verified 08/31/20 09:15) Shortness of breath, Swelling Home Medications: Allopurinol 100 mg PO DAILY 08/31/20 Apixaban [Eliquis] 5 mg PO BID 08/31/20 Cholecalciferol (Vitamin D3) [Vitamin D3] 1,000 unit PO DAILY 08/31/20 Cholestyramine/Aspartame [Cholestyramine Light Packet] 4 gm PO TID 08/31/20 Cyanocobalamin (Vitamin B-12) [B-12] 1,000 mcg PO DAILY 08/31/20 Gabapentin 300 mg PO BID 08/31/20 Loperamide [Imodium*] 2 mg PO BID 08/31/20 Losartan Potassium [Cozaar*] 50 mg PO BID 08/31/20 Magnesium Oxide 420 mg PO BID 08/31/20 Omeprazole 20 mg PO DAILY 08/31/20 Codeine/APAP [Tylenol W/Codeine Elixir] 5 ml PO BID PRN #1 bottle 09/01/20 predniSONE [Deltasone*] 10 mg PO BID #28 tab 09/01/20 - Past Medical/Surgical History Diabetic: No -: Hypertension -: COVID Pneumonia -: Crohn's disease Psychosocial/ Personal History: Patient lives at home. Patient is . - Family History Family History: Reviewed- Non-Contributory - Social History Smoking Status: Never smoker Alcohol use: No CD- Drugs: No Caffeine use: No Review of Systems Other: As documented, all other systems reviewed and negative. Physical Examination - Physical Exam General: Alert, In no apparent distress HEENT: Mucous membr. moist/pink Neck: Supple, JVD not distended Respiratory: Normal air movement, Crackles/rales (Bibasilar crackles) Cardiovascular: No edema, Regular rate/rhythm Gastrointestinal: Normal bowel sounds, Soft and benign, No tenderness Musculoskeletal: No swelling, No tenderness Integumentary: No rashes, No erythema Neurological: Normal speech, Other (Nonfocal) - Studies Laboratory Data (last 24 hrs) 09/23/20 16:10: PT 13.1 H, INR 1.11, APTT 33.2 09/23/20 16:10: WBC 6.0, Hgb 14.4, Hct 42.8, Plt Count 219 09/23/20 16:10: Sodium 137, Potassium 4.7, BUN 10, Creatinine 0.81, Glucose 98, Magnesium 2.3 Assessment and Plan - Problems (Diagnosis) (1) Pneumonia Current Visit: Yes Status: Acute (2) Acute respiratory failure with hypoxia Current Visit: Yes Status: Acute (3) Hypertension Current Visit: Yes Status: Acute (4) Coronavirus infection Current Visit: No Status: Acute - Plan Admit to inpatient. Start IV Rocephin and Zithromax for possible secondary bacterial pneumonia. Will also start steroid to continue treatment for COVID pneumonia. Repeat COVID test is pending. Supplemental oxygen and titrate. Consult to pulmonary. Follow cultures. Continue antihypertensives. - Advance Directives Does patient have a Living Will: No Does patient have a Durable POA for Healthcare: No
[2020-09-23] MEDS ORDERED: Levofloxacin 750mg IV 750 MG/150 ML BAG IV ONE (17:58)
[2020-09-23] MEDS ORDERED: ACETAMINOPHEN 500 MG TAB PO PRN (20:57)
[2020-09-23] MEDS ORDERED: CEFTRIAXONE 1 GM/NS 50 ML 1 GM/50 ML BAG IV SCH (21:00)
[2020-09-23 21:05] VITALS: BMI 24.3
[2020-09-23] MEDS: CEFTRIAXONE/SWI 1gm 1 GM/10 ML SYR IV SCH (21:48)
[2020-09-23] MEDS: dexAMETHasone 4 MG/ML VIAL IV SCH (21:48)
[2020-09-23] MEDS: NA CHLORIDE 0.9% 1,000 ML IV SCH (21:48)
[2020-09-23] MEDS: LOSARTAN POTASSIUM 50 MG TABLET PO SCH (21:49)
[2020-09-23] MEDS: APIXABAN 5 MG TABLET PO SCH (21:50)
[2020-09-24 05:16] LABS: Absolute Lymphocytes (CBC) 0.6 K/uL (0.7-4.9); Hematocrit 42.1 % (39.6-49.0); Lymphocytes % 19.6 % (15.3-44.8); MPV 7.7 fL (7.6-11.3); RBC Red Blood Cell Count 4.67 M/uL (4.33-5.43)
[2020-09-24 05:35] LABS: Magnesium 2.2 mg/dL (1.8-2.4); Phosphorus 3.3 mg/dL (2.5-4.9)
[2020-09-24 06:14] LABS: Potassium 5.6 mmol/L (3.5-5.1)
[2020-09-24] MEDS ORDERED: SOD POLYSTYREN SUL 15 GM/60 ML UCUP PO ONE (06:45)
[2020-09-24] MEDS ORDERED: D50W 25 GM/50 ML SYRINGE IV PRN ×2 (06:45→06:46)
[2020-09-24] MEDS ORDERED: GLUCAGON 1 MG/VIAL IM PRN (06:46)
[2020-09-24] MEDS ORDERED: INSULIN -REGULAR HUMAN 50 UNIT/0.5 ML ML IV ONE (07:00)
[2020-09-24] MEDS: LOSARTAN POTASSIUM 50 MG TABLET PO SCH ×2 (07:24→20:02)
[2020-09-24] MEDS: APIXABAN 5 MG TABLET PO SCH ×2 (07:24→20:02)
[2020-09-24] MEDS: dexAMETHasone 4 MG/ML VIAL IV SCH (07:24)
[2020-09-24] MEDS: CEFTRIAXONE/SWI 1gm 1 GM/10 ML SYR IV SCH ×2 (07:25→20:02)
[2020-09-24] MEDS ORDERED: D50W 50 ML IV ONE (07:29)
[2020-09-24] MEDS ORDERED: AZITHROMYCIN IV 500 MG in NA CHLORIDE 0.9% 250 ML IVPB SCH (09:00)
--- NOTE | 2020-09-24 10:00 | P.CNS ---
Date of Consult: 09/24/20 Chief Complaint: Shortness of breath History of Present Illness: Patient is 74 years of age was recently hospitalized for pete virus pneumonia discharged came back in again to the emergency room with shortness of breath productive cough found to be hypoxic CT scan findings a little bit more pronounced he is already on Eliquis Allergies lisinopril Allergy (Severe, Verified 08/31/20 09:15) Shortness of breath, Swelling Home Medications: Allopurinol 100 mg PO DAILY 08/31/20 Apixaban [Eliquis] 5 mg PO BID 08/31/20 Cholecalciferol (Vitamin D3) [Vitamin D3] 1,000 unit PO DAILY 08/31/20 Cholestyramine/Aspartame [Cholestyramine Light Packet] 4 gm PO TID 08/31/20 Cyanocobalamin (Vitamin B-12) [B-12] 1,000 mcg PO DAILY 08/31/20 Gabapentin 300 mg PO BID 08/31/20 Loperamide [Imodium*] 2 mg PO BID 08/31/20 Losartan Potassium [Cozaar*] 50 mg PO BID 08/31/20 Magnesium Oxide 420 mg PO BID 08/31/20 Omeprazole 20 mg PO DAILY 08/31/20 - Past Medical/Surgical History Diabetic: No -: Hypertension -: COVID Pneumonia -: Crohn's disease -: GERD -: neuropathy -: AAA -: abdominal surgery -: ileostomy with a reversal Psychosocial/ Personal History: Patient lives at home. Patient is . - Social History Alcohol use: No CD- Drugs: No Caffeine use: No Place of Residence: Home Physical Examination Temp Pulse Resp BP Pulse Ox 97.0 F 76 17 130/77 97 09/24/20 08:00 09/24/20 08:00 09/24/20 08:00 09/24/20 08:00 09/24/20 08:00 Laboratory Data (last 24 hrs) 09/23/20 16:10: PT 13.1 H, INR 1.11, APTT 33.2 09/23/20 16:10: WBC 6.0, Hgb 14.4, Hct 42.8, Plt Count 219 09/23/20 16:10: Sodium 137, Potassium 4.7, BUN 10, Creatinine 0.81, Glucose 98, Magnesium 2.3 - Problems (1) Pneumonia due to 2019 novel coronavirus Current Visit: Yes Status: Acute Plan: Patient is 74 years of age was discharged with the pete virus pneumonia on September 01 came back again worsening shortness of breath he does have some basal interstitial changes patient is already anti coagulated with Eliquis will recheck his CRP levels he was hypoxic patient is currently stable on 2 L of nasal cannula oxygen clear patient's x-rays clear with Solu-Medrol he will need upper lawn course of prednisone taper possible discharge tomorrow on oxygen and high dose prednisone
[2020-09-24] MEDS: METHYLPREDNISOLONE 125 MG INJ IV SCH ×2 (10:03→20:03)
--- NOTE | 2020-09-24 10:08 | P.PN ---
Subjective Date of Service: 09/24/20 Chief Complaint: Shortness of breath Patient complaining of shortness of breath. He transiently required more oxygen this morning. He also had a brief run of wide complex tachycardia. He is coughing frequently. Physical Examination - Vital Signs Temperature: 97.0 F Blood Pressure: 130/77 Pulse: 76 Respirations: 17 Pulse Ox (%): 97 - Physical Exam General: Alert, Mild distress HEENT: Mucous membr. moist/pink Neck: Supple, JVD not distended Respiratory: Clear to auscultation bilaterally, Normal air movement Cardiovascular: No edema, Regular rate/rhythm, Normal S1 S2 Gastrointestinal: Normal bowel sounds, Soft and benign, No tenderness Musculoskeletal: No swelling, No tenderness Integumentary: No rashes, No erythema Neurological: Normal speech, Other (Nonfocal) - Studies Laboratory Data (last 24 hrs) 09/23/20 16:10: PT 13.1 H, INR 1.11, APTT 33.2 09/23/20 16:10: WBC 6.0, Hgb 14.4, Hct 42.8, Plt Count 219 09/23/20 16:10: Sodium 137, Potassium 4.7, BUN 10, Creatinine 0.81, Glucose 98, Magnesium 2.3 Assessment And Plan - Current Problems (Diagnosis) (1) Pneumonia Current Visit: Yes Status: Acute (2) Acute respiratory failure with hypoxia Current Visit: Yes Status: Acute (3) Hypertension Current Visit: Yes Status: Acute (4) Coronavirus infection Current Visit: No Status: Acute - Plan Pulmonology input appreciated. Continue IV steroid Titrate oxygen. Antibiotics for possible secondary bacterial pneumonia. Continue anticoagulation with Eliquis. Monitor CRP.
[2020-09-24] MEDS: NA CHLORIDE 0.9% 1,000 ML IV SCH (20:03)
[2020-09-25] MEDS ORDERED: METOPROLOL TAR 25 MG TAB PO ONE (00:07)
[2020-09-25] MEDS: METOPROLOL TAR 25 MG TAB PO SCH ×2 (00:12→05:16)
[2020-09-25 05:51] LABS: Absolute Lymphocytes (CBC) 0.9 K/uL (0.7-4.9); Basophils % 0.6 % (0-1.3); Hematocrit 40.1 % (39.6-49.0); Lymphocytes % 10.9 % (15.3-44.8); MPV 7.7 fL (7.6-11.3); RBC Red Blood Cell Count 4.47 M/uL (4.33-5.43)
[2020-09-25 06:03] LABS: C-Reactive Protein 4.3 mg/L (<3.00); Magnesium 2.4 mg/dL (1.8-2.4); Phosphorus 3.7 mg/dL (2.5-4.9); Potassium 4.4 mmol/L (3.5-5.1)
[2020-09-25] MEDS: APIXABAN 5 MG TABLET PO SCH (08:03)
[2020-09-25] MEDS: LOSARTAN POTASSIUM 50 MG TABLET PO SCH (08:03)
[2020-09-25] MEDS: METHYLPREDNISOLONE 125 MG INJ IV SCH (08:03)
[2020-09-25] MEDS: CEFTRIAXONE/SWI 1gm 1 GM/10 ML SYR IV SCH (08:04)
[2020-09-25 08:19] VITALS: TEMP 97
[2020-09-25 08:23] VITALS: O2SAT 96
[2020-09-25 08:54] LABS: Blood Morphology Comment NOT SEEN (NOT SEEN); Platelet Estimate ADEQ
--- NOTE | 2020-09-25 09:56 | P.DS ---
Admission Date: 09/23/20 Discharge Date: 09/25/20 Disposition: ROUTINE DISCHARGE Discharge Condition: FAIR Reason for Admission: Shortness of breath - Problems (1) Pneumonia Current Visit: Yes Status: Acute (2) Acute respiratory failure with hypoxia Current Visit: Yes Status: Acute (3) Hypertension Current Visit: Yes Status: Acute (4) Coronavirus infection Current Visit: No Status: Acute Brief History of Present Illness: 74-year-old gentleman with a history of hypertension recently hospitalized for COVID pneumonia and discharged with prednisone and Eliquis anticoagulation 3 weeks ago presented emergency department with a complaint of shortness of breath and cough productive of whitish sputum. Patient states he got better after discharge but over the past few days have been influenced in shortness of breath and coughing without cessation. His oxygen saturation in the emergency department was in the mid 80s on room air. Chest x-ray and CTA thorax demonstrated worsening multifocal infiltrates with ground glass appearance suggestive of viral pneumonia. Repeat test for COVID 19 has been requested in the ED. Patient admitted for further management. Hospital Course: Patient admitted to the medical floor. Covid 19 test was positive. CTA thorax done demonstrated pneumonia pattern consistent with viral pneumonia. Patient diagnosed with COVID pneumonia and treated with IV steroid. He was already on Eliquis anticoagulation which was continued during the hospital stay. He was initially requiring oxygen but today patient has ambulated without oxygen and his SaO2 with ambulation is 89% on room air. His CRP is down to almost normal. He developed a run of SVT with aberrant conduction and was started on metoprolol. He has clinically improved. He will be discharged with metoprolol to to follow with cardiology-Dr. Keys as outpatient. Patient will be discharged with prednisone therapy. He will follow with Dr. Curran as an outpatient. Vital Signs/Physical Exam: Temp Pulse Resp BP Pulse Ox 97.0 F 70 17 142/79 H 95 09/25/20 08:00 09/25/20 08:00 09/25/20 08:00 09/25/20 08:00 09/25/20 08:00 General: Alert, In no apparent distress Neck: JVD not distended Respiratory: Normal air movement Cardiovascular: No edema, Regular rate/rhythm Musculoskeletal: No swelling, No erythema Integumentary: No rashes Laboratory Data at Discharge: WBC 8.4 K/uL (4.3-10.9) D 11/22/20 05:17 Hgb 13.4 g/dL (13.6-17.9) L 09/25/20 05:17 Hct 40.1 % (39.6-49.0) 09/25/20 05:17 Plt Count 218 K/uL (152-406) 09/25/20 05:17 PT 13.1 SECONDS (9.5-12.5) H 09/23/20 16:10 INR 1.11 09/23/20 16:10 APTT 33.2 SECONDS (24.3-36.9) 09/23/20 16:10 Sodium 138 mmol/L (136-145) 09/25/20 05:17 Potassium 4.4 mmol/L (3.5-5.1) 09/25/20 05:17 BUN 18 mg/dL (7-18) 09/25/20 05:17 Creatinine 0.91 mg/dL (0.55-1.3) 09/25/20 05:17 Glucose 150 mg/dL (74-106) H 09/25/20 05:17 Phosphorus 3.7 mg/dL (2.5-4.9) 09/25/20 05:17 Magnesium 2.4 mg/dL (1.8-2.4) 09/25/20 05:17 Home Medications: Allopurinol 100 mg PO DAILY 08/31/20 Apixaban [Eliquis] 5 mg PO BID 08/31/20 Cholecalciferol (Vitamin D3) [Vitamin D3] 1,000 unit PO DAILY 08/31/20 Cholestyramine/Aspartame [Cholestyramine Light Packet] 4 gm PO TID 08/31/20 Cyanocobalamin (Vitamin B-12) [B-12] 1,000 mcg PO DAILY 08/31/20 Gabapentin 300 mg PO BID 08/31/20 Loperamide [Imodium*] 2 mg PO BID 08/31/20 Losartan Potassium [Cozaar*] 50 mg PO BID 08/31/20 Magnesium Oxide 420 mg PO BID 08/31/20 Omeprazole 20 mg PO DAILY 08/31/20 Hcod/Chlorphen [Tussionex] 5 ml PO Q12H #1 btl 09/25/20 Metoprolol Tartrate [Lopressor*] 25 mg PO BID 6AM 6PM #60 tab 09/25/20 predniSONE [Deltasone] 20 mg PO BID #28 tab 09/25/20 New Medications: Metoprolol Tartrate [Lopressor*] 25 mg PO BID 6AM 6PM #60 tab predniSONE [Deltasone] 20 mg PO BID #28 tab Hcod/Chlorphen [Tussionex] 5 ml PO Q12H #1 btl Diet: AHA Activity: Ad tamanna Followup: OOTOOT [Primary Care Provider] - 1-2 Weeks Peterson Curran MD [ACTIVE - CAN ADMIT] - 1 Week Lobo Keys MD [ACTIVE - CAN ADMIT] - 1 Week (SVT) Time spent managing pt's care (in minutes): 36
--- NOTE | 2020-09-25 11:03 | P.PN ---
Subjective Date of Service: 09/25/20 Chief Complaint: Shortness of breath Subjective: Improving (Patient is improving doing much better no new complaints) Review of Systems Unremarkable Physical Examination - Vital Signs Temperature: 97.0 F Blood Pressure: 142/79 Pulse: 70 Respirations: 17 Pulse Ox (%): 95 - Physical Exam General: Alert, Oriented x2 Respiratory: Clear to auscultation bilaterally Assessment & Plan - Problems (Diagnosis) (1) Pneumonia due to 2019 novel coronavirus Current Visit: Yes Status: Acute Plan: Shortness of breath history of pete virus infection he is doing much better as not qualify for home O2 I inform the patient to take prednisone 20 b.i.d. for a week and then 10 twice a day poly via slow taper with him as he has had the current hospitalization is CRP is less than 10 sat 96% on room air stable for discharge
[2020-09-25 11:25] VITALS: BP 143/68
== END 2020-09-25 11:30 | disposition home or self-care (01) | DRG 177 ==
LOC: ER 15:25 → ERHOLD 17:46 → 3RD-ICU 20:02
PROVIDERS: ADMIT Internal Medicine; ATTEND Internal Medicine
DX: U07.1 COVID-19 (principal); J12.89 Other viral pneumonia; J96.01 Acute respiratory failure with hypoxia; K21.9 Gastro-esophageal reflux disease without esophagitis; I10 Essential (primary) hypertension; Z88.1 Allergy status to other antibiotic agents; Z88.8 Allergy status to other drugs, medicaments and biological substances; Z79.52 Long term (current) use of systemic steroids; Z79.01 Long term (current) use of anticoagulants; Z79.899 Other long term (current) drug therapy
CPT/HCPCS: 36415; 71045; 71275; 80048; 83605; 83735; 83880; 84100; 84132; 84145; 84484; 85025; 85610; 85730; 86140; 87040; 93005; 94760; 96361; 96365; 96366; 99285; J0456; J0696; J1100; J2930; J7030; J7040; J7050; Q9967; U0003

== ENCOUNTER 2021-06-26 10:55 | Emergency (ER) | payer OTHER ==
[2021-06-26 13:57] LABS: Absolute Lymphocytes (CBC) 2.2 K/uL (0.7-4.9); Basophils % 0.9 % (0-1.3); Hematocrit 42.1 % (39.6-49.0); Lymphocytes % 31.5 % (15.3-44.8); MPV 7.2 fL (7.6-11.3); RBC Red Blood Cell Count 4.74 M/uL (4.33-5.43)
[2021-06-26 14:19] LABS: BUN Blood Urea Nitrogen 9 mg/dL (7-18); Bicarbonate 26 mmol/L (21-32); Glucose Level 104 mg/dL (74-106); Sodium Level 139 mmol/L (136-145)
--- NOTE | 2021-06-26 14:42 | EDPHYS ---
Physician Documentation [facility] Name: Joon Turcios Jr Age: 75 yrs Sex: Male : 1945 Arrival Date: 06/26/2021 Time: 11:01 Bed DIS3 Private MD: ED Physician mSooth Renteria HPI: 06/26 15:12 This 75 yrs old Male presents to ER via Ambulatory with complaints of Head kb Injury-Adult, Fall Injury. 15:12 Details of fall: The patient fell from seated position, off the edge of a bed. Onset: kb The symptoms/episode began/occurred yesterday. Associated injuries: The patient sustained neck injury, sore, anterior aspect of right shoulder and right knee and right elbow, painful injury. Severity of symptoms: At their worst the symptoms were mild, moderate, in the emergency department the symptoms are unchanged. The patient has not experienced similar symptoms in the past. The patient has not recently seen a physician. Pt reports he fell while trying to get out of bed around 0300 yesterday morning. Reports soreness to neck, right shoulder, elbow and knee. States he believes he did hit his head on the nightstand. Has been using his walker since fall because he has felt unsteady. Denies lightheadedness, dizziness, headache, AMS, chest pain, shortness of breath or any other symptoms. Historical: - Allergies: 11:46 Lisinopril; ss 11:46 Streptomycin; ss - PMHx: 11:46 chron's; GERD; Hypertension; neuropathy; DVT; PE; ss - PSHx: 11:46 bowel resection; Appendectomy; ss - Immunization history:: Adult Immunizations up to date, Client reports receiving the 2nd dose of the Covid vaccine. - Social history:: Smoking status: Patient denies any tobacco usage or history of. ROS: 15:12 Constitutional: Negative for fever, chills, and weight loss. kb 15:12 MS/extremity: Positive for pain, of the anterior aspect of right shoulder and right knee and right elbow. 15:12 All other systems are negative. Exam: 15:10 Constitutional: This is a well developed, well nourished patient who is awake, alert, kb and in no acute distress. Head/Face: Normocephalic, atraumatic. ENT: Moist Mucous membranes Cardiovascular: Regular rate and rhythm with a normal S1 and S2. No gallops, murmurs, or rubs. No pulse deficits. Respiratory: Respirations even and unlabored. No increased work of breathing, no retractions or nasal flaring. Neuro: Awake and alert, GCS 15, oriented to person, place, time, and situation. Moves all extremities. Normal gait. Psych: Awake, alert, with orientation to person, place and time. Behavior, mood, and affect are within normal limits. 15:10 Musculoskeletal/extremity: Extremities: grossly normal except: noted in the right elbow: pain, tenderness, noted in the right knee: pain, tenderness, ROM: intact in all extremities, Circulation is intact in all extremities. Sensation intact. Weight bearing: can bear weight with assistance only, uses walker. 15:10 Skin: injury, abrasion(s), very small abrasion noted, of the right elbow. 15:14 ECG was reviewed by the Attending Physician. Vital Signs: 11:48 BP 148 / 79; Pulse 67; Resp 16; Temp 98.7(TE); Pulse Ox 100% on R/A; Weight 90.26 kg; ss Height 6 ft. 1 in. (185.42 cm); Pain 3/10; 11:48 Body Mass Index 26.25 (90.26 kg, 185.42 cm) Laya Coma Score: 11:44 Eye Response: spontaneous(4). Verbal Response: oriented(5). Motor Response: obeys commands(6). Total: 15. 15:08 Eye Response: spontaneous(4). Verbal Response: oriented(5). Motor Response: obeys commands(6). Total: 15. MDM: 11:59 Patient medically screened. 15:08 Data reviewed: vital signs, nurses notes. Data reviewed: I have discussed the patient's kb presentation/case with the attending Emergency Department Physician;. Data interpreted: Pulse oximetry: on room air is 100 %. Interpretation: normal. Counseling: I had a detailed discussion with the patient and/or guardian regarding: the historical points, exam findings, and any diagnostic results supporting the discharge/admit diagnosis, lab results, radiology results, the need for outpatient follow up, a family practitioner, to return to the emergency department if symptoms worsen or persist or if there are any questions or concerns that arise at home. 06/26 13:37 Order name: CBC with Diff; Complete Time: 14:08 kb 06/26 13:37 Order name: Basic Metabolic Panel; Complete Time: 14:32 kb 06/26 11:56 Order name: CT Head C Spine ss 06/26 11:56 Order name: XRAY Elbow RIGHT 3 view ss 06/26 11:56 Order name: XRAY Knee RIGHT 3 view ss 06/26 13:37 Order name: EKG; Complete Time: 13:37 kb 06/26 13:37 Order name: EKG - Nurse/Tech; Complete Time: 13:53 kb EC:14 Rate is 73 beats/min. Rhythm is regular. QRS Burkett is Normal. WA interval is prolonged kb at 220 msec. QRS interval is normal at 92 msec. QT interval is normal at 418 msec. Administered Medications: No medications were administered Disposition: 17:29 Co-signature as Attending Physician, Smooth Renteria MD I agree with the assessment and rn plan of care. Attestation: The patient's history, exam findings, diagnostics, and a summary of any interventions or procedures was reviewed in detail with Latanya MAGANA. Disposition Summary: 06/26/21 14:42 Discharge Ordered Location: Home kb Condition: Stable kb Diagnosis - Fall from bed, initial encounter kb - Pain in right knee kb - Pain in right elbow kb Followup: kb - With: Emergency Department - When: As needed - Reason: Worsening of condition Followup: kb - With: Private Physician - When: 2 - 3 days - Reason: Recheck today's complaints, Continuance of care, Re-evaluation by your physician Discharge Instructions: - Discharge Summary Sheet kb - Musculoskeletal Pain kb Forms: - Medication Reconciliation Form kb - Thank You Letter kb - Antibiotic Education kb - Prescription Opioid Use kb Signatures: Dispatcher [employer] EDLatanya Phipps FNP-C FNP-Smooth Foley MD MD rn Smirch, Shelby, RN RN
--- NOTE | 2021-06-26 14:42 | ER ---
Nurse's Notes [facility] Name: Joon Turcios Jr Age: 75 yrs Sex: Male : 1945 Arrival Date: 06/26/2021 Time: 11:01 Bed DIS3 Private MD: Diagnosis: Fall from bed, initial encounter;Pain in right knee;Pain in right elbow Presentation: 06/26 11:44 Chief complaint: Patient states: Getting out of bed yesterday at 0300, fell against end table and after standing up fell again onto the floor. Did not have any balance. C/o pain to R shoulder, R knee and R elbow pain. Unknown if patient hit his head, but states that he does feel a little fuzzy. Coronavirus screen: Client denies travel out of the [place] in the last 14 days. Ebola Screen: Patient denies exposure to infectious person. Patient denies travel to an Ebola-affected area in the 21 days before illness onset. Mechanism of Injury: The problem was sustained at home, resulted from a fall, from a standing position. Initial Sepsis Screen: Does the patient meet any 2 criteria? No. Patient's initial sepsis screen is negative. Does the patient have a suspected source of infection? No. Patient's initial sepsis screen is negative. Risk Assessment: Do you want to hurt yourself or someone else? Patient reports no desire to harm self or others. 11:44 Method Of Arrival: Ambulatory ss 11:44 Acuity: ISRRAEL 3 ss Historical: - Allergies: 11:46 Lisinopril; ss 11:46 Streptomycin; ss - PMHx: 11:46 chron's; GERD; Hypertension; neuropathy; DVT; PE; ss - PSHx: 11:46 bowel resection; Appendectomy; ss - Immunization history:: Adult Immunizations up to date, Client reports receiving the 2nd dose of the Covid vaccine. - Social history:: Smoking status: Patient denies any tobacco usage or history of. Screenin:49 Abuse screen: Denies threats or abuse. Denies injuries from another. Nutritional ss screening: No deficits noted. Tuberculosis screening: Never had TB. Fall Risk None identified. Assessment: 13:12 General: Appears in no apparent distress. comfortable, Behavior is calm, cooperative. ss Pain: Complains of pain in anterior aspect of right shoulder and right leg and right knee and right arm and right elbow Pain currently is 3 out of 10 on a pain scale. Neuro: Level of Consciousness is awake, alert, obeys commands, Oriented to person, place, time, situation. Cardiovascular: Capillary refill < 3 seconds Patient's skin is warm and dry. Respiratory: Airway is patent Respiratory effort is even, unlabored, Respiratory pattern is regular, symmetrical. GI: Patient currently denies diarrhea, nausea, vomiting. EENT: Nares are clear. Derm: Skin is intact, is healthy with good turgor, Skin is pink, warm \T\ dry. normal. Musculoskeletal: Circulation, motion, and sensation intact. Range of motion: intact in all extremities, Swelling absent. 13:49 Reassessment: Patient appears in no apparent distress at this time. Patient and/or ss family updated on plan of care and expected duration. Pain level reassessed. Patient is alert, oriented x 3, equal unlabored respirations, skin warm/dry/pink. Vital Signs: 11:48 BP 148 / 79; Pulse 67; Resp 16; Temp 98.7(TE); Pulse Ox 100% on R/A; Weight 90.26 kg; ss Height 6 ft. 1 in. (185.42 cm); Pain 3/10; 11:48 Body Mass Index 26.25 (90.26 kg, 185.42 cm) Addison Coma Score: 11:44 Eye Response: spontaneous(4). Verbal Response: oriented(5). Motor Response: obeys commands(6). Total: 15. 15:08 Eye Response: spontaneous(4). Verbal Response: oriented(5). Motor Response: obeys commands(6). Total: 15. ED Course: 11:01 Patient arrived in ED. mr 11:46 Triage completed. ss 11:46 Arm band placed on right wrist. ss 11:59 Latanya Hollis FNP-C is [facility]. kb 11:59 Smooth Renteria MD is Attending Physician. kb 12:26 CT Head C Spine In Process Unspecified. EDMS 12:50 XRAY Elbow RIGHT 3 view In Process Unspecified. EDMS 12:50 XRAY Knee RIGHT 3 view In Process Unspecified. EDMS 13:39 Moni Pearosn, SUKI is Primary Nurse. ss 13:49 Patient has correct armband on for positive identification. Bed in low position. Call ss light in reach. 13:49 Inserted saline lock: 22 gauge in right antecubital area, using aseptic technique. ss Blood collected. 14:57 No provider procedures requiring assistance completed. IV discontinued, intact, ss bleeding controlled, No redness/swelling at site. Pressure dressing applied. Administered Medications: No medications were administered Outcome: 14:42 Discharge ordered by . colton 14:57 Discharged to home ambulatory, with family. ss 14:57 Condition: good 14:57 Discharge instructions given to patient, family, Instructed on discharge instructions, follow up and referral plans. Demonstrated understanding of instructions, follow-up care. 14:58 Patient left the ED. ss Signatures: Dispatcher [employer] EDMS Latanya Hollis, SABAS-Kat CREAMERY WORKER-Pari Elizabeth Shelby, RN RN ss
[2021-06-26 15:06] VITALS: BP 148/79; TEMP 98.7; O2SAT 100
--- NOTE | 2021-06-27 07:38 | EKG ---
Test Date: 2021-06-26 Test Time: 13:55:34 Food Inspector: RANDOLPH MEASUREMENT RESULTS: Intervals: Rate: 73 MT: 220 QRSD: 92 QT: 418 QTc: 460 [place]: P: 63 MT: 220 QRS: 64 T: 49 INTERPRETIVE STATEMENTS: Sinus rhythm with marked sinus arrhythmia with 1st degree AV block Otherwise normal ECG Compared to ECG 09/23/2020 16:57:11 First degree AV block now present Atrial premature complex(es) no longer present Electronically Signed On 06-27-21 07:36:27 CDT by Lobo Keys
--- NOTE | 2021-06-27 08:21 | RAD REPORT ---
EXAM DESCRIPTION: RAD - Knee Right 3 View - 06/26/2021 12:49 pm CLINICAL HISTORY: PAIN, fall COMPARISON: No comparisonsNone. FINDINGS: No fracture, dislocation or periosteal reaction.No joint effusion seen. No joint space eze rowing. No foreign body or other soft tissue abnormality. IMPRESSION: Negative right knee. Clinical concerns for internal derangement or occult bony injury could be further assessed with MR im aging.
--- NOTE | 2021-06-27 08:21 | RAD REPORT ---
EXAM DESCRIPTION: CT - CTHCSPWOC - 06/26/2021 12:26 pm CLINICAL HISTORY: fall injury Prolonged malfunction of the hospital imaging system precluded earlier dictation. Phone systems nonfu nctioning so findings telephoned to the referring clinician via cell phone at the time of the study. COMPARISON: No comparisons TECHNIQUE: Axial 5 mm thick images of the head were obtained. Axial 2 mm thick images of the cervic al spine were obtained with sagittal and coronal reconstruction images generated and reviewed. All CT scans are performed using dose optimization technique as appropriate and may include automated exposure control or mA/KV adjustment according to patient size. FINDINGS: No intracranial hemorrhage, mass, edema or acute intracranial finding. No suspicion for ac carie infarction. No extra-axial fluid collections. Mastoid air cells and paranasal sinuses are clear. No globe or orbit abnormality seen. Patient has minimal atrophy with ventricles in proportion. No sig nificant chronic ischemic change. Cervical bodies are normal in height. No fracture or acute cervical spine finding identifiable. Degen erative left convex scoliotic curvature is present. There is slight anterior subluxation of C5 on C6 with C5-6 disc space narrowing. C6-7 disc space narrowing with endplate spurring also present. Centr al canal detail is inherently limited. No paraspinal mass or hematoma. IMPRESSION: Negative CT head examination for acute or significant finding. Cervical spine degenerative change as detailed. No acute finding.
--- NOTE | 2021-06-27 08:23 | RAD REPORT ---
EXAM DESCRIPTION: RAD - Elbow Right 3 View - 06/26/2021 12:49 pm CLINICAL HISTORY: PAINfall Prolonged imaging system technical malfunction precluded earlier reporting. COMPARISON: No comparisons FINDINGS: No fracture is identified and no elevated posterior fat pad. There is no dislocation or pe riosteal reaction noted. No foreign body or other soft tissue abnormality. Mild degenerative changes are present along the articular margin of the ulna. IMPRESSION: Negative right elbow examination for acute finding.
== END 2021-06-26 14:58 | disposition home or self-care (01) ==
LOC: ER 10:55
DX: M25.521 Pain in right elbow (principal); M25.561 Pain in right knee; W06.XXXA Fall from bed, initial encounter; I10 Essential (primary) hypertension; Z86.718 Personal history of other venous thrombosis and embolism; Z88.3 Allergy status to other anti-infective agents; Z88.8 Allergy status to other drugs, medicaments and biological substances
CPT/HCPCS: 36415; 70450; 72125; 80048; 85025; 93005; 99283

== ENCOUNTER 2022-05-25 11:23 | Emergency (ER) | payer OTHER ==
--- NOTE | 2022-05-25 13:11 | EDPHYS ---
Physician Documentation [facility] Name: Joon Turcios Jr Age: 76 yrs Sex: Male : 1945 Arrival Date: 05/25/2022 Time: 11:26 Bed 18 Private MD: ED Physician Smooth Renteria HPI: 05/25 13:06 This 76 yrs old Male presents to ER via Ambulatory with complaints of Blood Pressure rn Problem. 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 Otherwise asymptomatic. NO syncope. No chest pain/sob/abd pain. NO focal neuro complaints. . Onset: The symptoms/episode began/occurred at an unknown time. Severity of symptoms: At their worst the symptoms were very mild. The patient has not experienced similar symptoms in the past. The patient has been recently seen by a physician:. Historical: - Allergies: 12:22 Lisinopril; aa5 12:22 Streptomycin; aa5 12:22 Amitriptyline; aa5 12:22 amlodipine; aa5 12:22 Nifedipine; aa5 12:22 SHELLFISH; aa5 - PMHx: 12:22 chron's; crohns disease; DVT; GERD; Hypertension; neuropathy; PE; Gout; Acid Reflux; aa5 - Immunization history:: Adult Immunizations unknown. - Social history:: Smoking status: Patient denies any tobacco usage or history of. - Family history:: not pertinent. - Hospitalizations: : No recent hospitalization is reported. ROS: 13:06 Constitutional: Negative for fever, chills, and weight loss, Eyes: Negative for injury, rn pain, redness, and discharge, ENT: Negative for injury, pain, and discharge, Neck: Negative for injury, pain, and swelling, Cardiovascular: Negative for chest pain, palpitations, and edema, Respiratory: Negative for shortness of breath, cough, wheezing, and pleuritic chest pain, Abdomen/GI: Negative for abdominal pain, nausea, vomiting, diarrhea, and constipation, Back: Negative for injury and pain, : Negative for injury, bleeding, discharge, and swelling, MS/Extremity: Negative for injury and deformity, Skin: Negative for injury, rash, and discoloration, Neuro: Negative for headache, weakness, numbness, tingling, and seizure. Exam: 13:06 Constitutional: This is a well developed, well nourished patient who is awake, alert, rn and in no acute distress. Head/Face: Normocephalic, atraumatic. Eyes: Periorbital areas with no swelling, redness, or edema. Cardiovascular: Regular rate and rhythm. No pulse deficits. Respiratory: No increased work of breathing, no retractions or nasal flaring. Abdomen/GI: Soft, non-tender Skin: Warm, dry MS/ Extremity: Pulses equal, no cyanosis. Neuro: Awake and alert, GCS 15, oriented to person, place, time, and situation. Cranial nerves II-XII grossly intact. Motor strength 5/5 in all extremities. Sensory grossly intact. Cerebellar exam normal. Vital Signs: 12:21 BP 157 / 78; Pulse 64; Resp 16 S; Temp 98.2(O); Pulse Ox 97% on R/A; Weight 91.63 kg aa5 (R); Height 6 ft. 1 in. (185.42 cm) (R); Pain 0/10; 13:25 BP 139 / 70; Pulse 63; Resp 18; Temp 98.6(TE); Pulse Ox 100% on R/A; bh1 12:21 Body Mass Index 26.65 (91.63 kg, 185.42 cm) aa5 MDM: 12:29 Patient medically screened. rn 13:06 Differential Diagnosis hypertension. Data reviewed: vital signs, nurses notes, and as a rn result, I will discharge patient. Counseling: I had a detailed discussion with the patient and/or guardian regarding: the historical points, exam findings, and any diagnostic results supporting the discharge/admit diagnosis, the need for outpatient follow up, to return to the emergency department if symptoms worsen or persist or if there are any questions or concerns that arise at home. Special discussion: I discussed with the patient/guardian in detail that at this point there is no indication for admission to the hospital. It is understood, however, that if the symptoms persist or worsen the patient needs to return immediately for re-evaluation. Based on the history and exam findings, there is no indication for further emergent testing or inpatient evaluation. I discussed with the patient/guardian the need to see the primary care provider for further evaluation of the symptoms. ED course: Pt with great blood pressure readings at home, range from SBP 100-120s, no hypotensive episodes, and no greatly hypertensive episodes, overall look to be great, and has monthly log. Normal neuro exam. will dc home with pcp f/u and given return precautions.. Administered Medications: No medications were administered Disposition Summary: 05/25/22 13:10 Discharge Ordered Location: Home rn Problem: new rn Symptoms: are unchanged rn Condition: Stable rn Diagnosis - Essential (primary) hypertension rn Followup: rn - With: Private Physician - When: As needed - Reason: Recheck today's complaints, Re-evaluation by your physician Discharge Instructions: - Discharge Summary Sheet rn - Hypertension, Adult rn - How to Take Your Blood Pressure, [id number] rn - Managing Your Hypertension rn Forms: - Medication Reconciliation Form rn - Thank You Letter rn - Antibiotic nocturnist physician - Prescription Opioid Use rn Signatures: Smooth Renteria MD MD rn Calderon, Audri, RN RN aa5
--- NOTE | 2022-05-25 13:11 | ER ---
Nurse's Notes [facility] Name: Joon Turcios Jr Age: 76 yrs Sex: Male : 1945 Arrival Date: 05/25/2022 Time: 11:26 Bed 18 Private MD: Diagnosis: Essential (primary) hypertension Presentation: 05/25 12:21 Chief complaint: Patient states: "my blood pressure has been doing weird things, it aa5 goes from 120/70 to 97/58". Reviewed pt's BP log of a few days and only one reading of 97/58, other reading with systolic >103. Pt denies any complaints or symptoms. 12:21 Coronavirus screen: At this time, the client does not indicate any symptoms associated aa5 with coronavirus-19. Ebola Screen: No symptoms or risks identified at this time. Initial Sepsis Screen: Does the patient meet any 2 criteria? No. Patient's initial sepsis screen is negative. Does the patient have a suspected source of infection? No. Patient's initial sepsis screen is negative. Risk Assessment: Do you want to hurt yourself or someone else? Patient reports no desire to harm self or others. Onset of symptoms was May 2022. 12:21 Method Of Arrival: Ambulatory aa5 12:21 Acuity: ISRRAEL 5 aa5 Triage Assessment: 13:26 General: Appears in no apparent distress. Behavior is calm, cooperative, appropriate bh1 for age. Historical: - Allergies: 12:22 Lisinopril; aa5 12:22 Streptomycin; aa5 12:22 Amitriptyline; aa5 12:22 amlodipine; aa5 12:22 Nifedipine; aa5 12:22 SHELLFISH; aa5 - PMHx: 12:22 chron's; crohns disease; DVT; GERD; Hypertension; neuropathy; PE; Gout; Acid Reflux; aa5 - Immunization history:: Adult Immunizations unknown. - Social history:: Smoking status: Patient denies any tobacco usage or history of. - Family history:: not pertinent. - Hospitalizations: : No recent hospitalization is reported. Screenin:25 Abuse screen: Denies threats or abuse. Nutritional screening: No deficits noted. 1 Tuberculosis screening: No symptoms or risk factors identified. Fall Risk None identified. Assessment: 13:25 Pain: Denies pain. 1 Vital Signs: 12:21 BP 157 / 78; Pulse 64; Resp 16 S; Temp 98.2(O); Pulse Ox 97% on R/A; Weight 91.63 kg aa (R); Height 6 ft. 1 in. (185.42 cm) (R); Pain 0/10; 13:25 BP 139 / 70; Pulse 63; Resp 18; Temp 98.6(TE); Pulse Ox 100% on R/A; bh1 12:21 Body Mass Index 26.65 (91.63 kg, 185.42 cm) [facility] ED Course: 11:26 Patient arrived in ED. as 12:21 Arm band placed on Patient placed in an exam room, on a stretcher. aa5 12:29 Smooth Renteria MD is Attending Physician. rn 12:34 Melissa Badillo, SUKI is Primary Nurse. [facility] 12:35 Triage completed. aa 13:25 No apparent distress. Resting quietly. Awaiting disposition. 1 13:25 Patient has correct armband on for positive identification. monitoring coordinator on. Pulse bh1 ox on. NIBP on. 13:25 No provider procedures requiring assistance completed. Patient did not have IV access bh during this emergency room visit. Administered Medications: No medications were administered Medication: 13:25 VIS not applicable for this client. [facility] Outcome: 13:10 Discharge ordered by . rn 13:25 Discharged to home ambulatory. 1 13:25 Condition: good 13:25 Discharge instructions given to patient, Instructed on discharge instructions, follow up and referral plans. Demonstrated understanding of instructions, follow-up care. 13:27 Patient left the ED. [facility] Signatures: Sivan Cleary as Smooth Renteria MD MD rn Calderon, Audri, RN RN [facility] Melissa Badillo RN RN [facility]
[2022-05-25 14:06] VITALS: BP 139/70; TEMP 98.6; O2SAT 100
== END 2022-05-25 13:27 | disposition home or self-care (01) ==
LOC: ER 11:23
DX: I10 Essential (primary) hypertension (principal); Z88.8 Allergy status to other drugs, medicaments and biological substances; Z91.013 Allergy to seafood
CPT/HCPCS: 99284

== ENCOUNTER 2024-11-16 12:05 | Emergency (ER) | payer OTHER ==
--- OUTSIDE RECORDS SUMMARY | 2024-11-16 12:09 | XMS REPORT | Continuity of Care Document ---
Author Name Unknown Address [address] [facility] [address] [place] [address] [facility] thconnect Address [address] [facility] [address] [place] [address] Care Team Providers Care Resistance Brazer Name Role Phone Pcp, Patient Does Not Have A Primary Care Physic ju Radiology Attending Clinician Unavailable RADIOLOGY Attending Clinician Unavailable Payers Payer Name Policy Type Policy Number Effective Date Expirati on Date Source Allergies, Adverse Reactions, Alerts Allergy Name Allergy Type Status Severity Reaction(s) Onset Date Inactive Date Treating Clinician Comments Source NO KNOWN ALLERGIE S Drug Class Active Univers [facility] Social History Social Habit Start Date Stop Date Quantity Comments Source Sexual orientation U [facility] Sex Assigned At 1945 00:00:00 1945 00[birth year]00 [facility] Smoking Status Start Date Stop Date Source Tobacco smoking consumption unknown [facility] Procedures Procedure Date / Time Performed Performing Clinician Source [facility] PATIENT FINANCIAL POLICY 2023-10-02 18:17:39 Doctor Unassigned, [place] [facility] NO SHOW OR MISSED APPOINTMENT POLICY ACKNOWLEDGEMENT 2023-10-02 18:17:03 Doctor Unassigned, [place] [facility] NOTICE OF PRIVACY PRACTICES 2023-10-02 18:16:37 Doctor Unassigned, [place] [facility] CONSENT/REFUSAL FOR DIAGNOSIS AND TREATMENT 2023-10-02 18:16:01 Doctor Unassigned, [place] [facility] ASSIGNMENT OF BENEFITS 2023-10-02 18:15:26 Docto r Unassigned, [place] [facility] Encounters Start Date/Time End Date/Time Encounter Type Admission Type Attending Clinicians Care Facility Care Department Encounter ID Source 2023-10-02 12:18:20 2023-10-02 23:59:00 Hospital Encounter Radiology [facility] [id number] [facility] 2023-10-02 00:00:00 2023-10-02 23:59:00 Outpatient R RADIOLOGY [facility] [id number] [facility]
[2024-11-16 14:14] LABS: Absolute Basophils 0.1 K/uL (0-0.5); Absolute Eosinophils 0.6 K/uL (0-0.5); Absolute Lymphocytes (CBC) 2.7 K/uL (0.7-4.9); Absolute Monocytes 0.9 K/uL (0.1-1.3); Absolute Neutrophil 5.3 K/uL (1.8-8.0); Basophils % 0.8 % (0-1.3); Eosinophils % 5.9 % (0-4.4); Hematocrit 43.6 % (39.6-49.0); Hemoglobin 14.9 g/dL (13.6-17.9); Lymphocytes % 27.9 % (15.3-44.8); MCH 31.2 pg (27.0-35.0); MCHC 34.1 g/dL (32.0-36.0); MCV 91.5 fL (80-100); MPV 8.1 fL (7.6-11.3); Monocytes % 9.7 % (3.3-12.3); Neutrophils % 55.7 % (41.7-73.7); Platelets 162 thou/uL (152-406); RBC Red Blood Cell Count 4.76 M/uL (4.33-5.43); Red Cell Distribution Width 13.6 % (12.1-15.2)
[2024-11-16 14:26] LABS: Anion Gap 8.6 mEq/L (5.0-15.0); Potassium 3.6 mEq/L (3.5-5.1)
[2024-11-16 14:52] LABS: PT Prothrombin Time 13.1 SECONDS (9.4-12.5); PTT, Activated Partial Thromb 30.9 SECONDS (24.3-36.9); Protime INR 1.25
--- NOTE | 2024-11-16 15:44 | RAD REPORT ---
EXAMINATION: US LEFT LOWER EXTREMITY VENOUS DOPPLER CLINICAL INDICATION: [facility] MAIN left leg discoloration of toes;Pain Bed Name: IW1 N TECHNIQUE: Complete bilateral duplex sonography of the LEFT lower extremity veins was performed. The examination included compression for vein patency, color Doppler imaging and flow augmentation in response to distal compression of the distal external iliac, common femoral, femoral, popliteal, tibi al, and great and small saphenous veins. COMPARISON: No prior exam. FINDINGS: Duplex sonography testing of the veins of the LEFT lower extremity was performed. Color flow imaging shows all veins to be compressible with [id number] color filling. Pulsatile and phasic flow is present within all lower extremity deep and superficial veins examined. IMPRESSION: No evidence of deep venous thrombosis.
--- NOTE | 2024-11-16 15:47 | RAD REPORT ---
EXAMINATION: US Lower Extremity Artery Uni Ltd CLINICAL INDICATION: Male, 78 years old. [facility] MA[facility] left leg discoloration of toes;Pain Bed Name: IW1 TECHNIQUE: Arterial duplex ultrasound was performed of the Left lower extremity with real-time, color -flow, and spectral wave Doppler evaluation. Please disregard advantage left upper extremity arterial duplex images, which are associated with thi s patient's study accession in error. COMPARISON: No prior exam. FINDINGS: Up to moderate mixed calcific and noncalcific plaque throughout the evaluated arterial system. Triph asic waveforms are seen throughout the evaluated Right lower extremity arterial system, to the level of the dorsalis pedis artery. No other suspicious findings. IMPRESSION: No evidence of significant peripheral vascular disease.
--- NOTE | 2024-11-16 16:07 | ER ---
Nurse's Notes [facility] Name: Joon Turcios Jr Age: 78 yrs Sex: Male : 1945 Arrival Date: 11/16/2024 Time: 12:05 Bed 26 Private MD: Diagnosis: Cellulitis of unspecified toe Presentation: 11/16 12:41 Chief complaint: Patient states: blisters to bottom bottom of toes on left foot onset cm10 last week. Coronavirus screen: Client denies travel out of the [place] in the last 14 days. Ebola Screen: Patient denies travel to an Ebola-affected area in the 21 days before illness onset. Initial Sepsis Screen: Does the patient meet any 2 criteria? No. Patient's initial sepsis screen is negative. Does the patient have a suspected source of infection? No. Patient's initial sepsis screen is negative. Risk Assessment: Do you want to hurt yourself or someone else? Patient reports no desire to harm self or others. Onset of symptoms was November 16, 2024. 12:41 Method Of Arrival: Ambulatory cm10 12:41 Acuity: ISRRA[place] 3 cm10 Triage Assessment: 12:44 General: Appears in no apparent distress. uncomfortable, Behavior is calm, cooperative. cm10 Neuro: No deficits noted. Level of Consciousness is awake, alert, obeys commands, Oriented to person, place, time, situation, Appropriate for age. Respiratory: No deficits noted. Airway is patent Respiratory effort is even, unlabored, Respiratory pattern is regular, symmetrical. Derm: Wound noted plantar aspect of left first toe, plantar aspect of left second toe, plantar aspect of left third toe, plantar aspect of left fourth toe and plantar aspect of left fifth toe Wound is Blistering. Historical: - Allergies: 12:43 Amitriptyline; cm10 12:43 Lisinopril; cm10 12:43 Nifedipine; cm10 12:43 SHELLFISH; cm10 12:43 Streptomycin; cm10 12:43 unkn HTN med; cm10 - Home Meds: 12:45 allopurinol 100 mg Oral tab 1 tab once daily [Active]; amlodipine 10 mg oral tablet 1 cm10 tab daily [Active]; apixaban 2.5 mg oral tablet 1 tab 2 times per day [Active]; ferrous gluconate 324 mg (37.5 mg iron) Oral tablet [Active]; gabapentin 300 mg Oral cap 2 caps 3 times per day [Active]; levothyroxine 50 mcg oral tablet daily [Active]; loperamide 2 mg Oral cap 1 caps three times a day [Active]; losartan 50 mg Oral tab 1 tab 2 times per day [Active]; omeprazole 20 mg Oral cpDR 1 cap once daily [Active]; - PMHx: 12:43 acid reflux; chron's; crohns disease; GERD; DVT; Gout; Hypertension; neuropathy; PE; cm10 - PSHx: 12:43 Appendectomy; bowel resection; cm10 - Immunization history:: Adult Immunizations up to date. - Infectious Disease History:: Denies. - Social history:: Smoking status: Patient denies any tobacco usage or history of. - Family history:: not pertinent. - Hospitalizations: : No recent hospitalization is reported. Screenin:45 [facility] ED Fall Risk Assessment (Adult) History of falling in the last 3 months, me1 including since admission No falls in past 3 months (0 pts) Confusion or Disorientation No (0 pts) Intoxicated or Sedated No (0 pts) Impaired Gait Yes (1 pt) Mobility Assist Device Used No (0 pt) Altered Elimination No (0 pt) Score/Fall Risk Level 0 - 2 = Low Risk Maintained a safe environment, Provided non-skid footwear, Hourly rounding (assess needs \T\ fall precautionary measures) done. Abuse screen: Denies threats or abuse. Nutritional screening: No deficits noted. Tuberculosis screening: No symptoms or risk factors identified. Assessment: 13:45 General: Appears comfortable, well groomed, well developed, well nourished, Behavior is me1 calm, cooperative, appropriate for age, Reports blisters to bottom of toes on left foot onset last week. Pain: Complains of pain in left foot and plantar aspect of left fifth toe and plantar aspect of left fourth toe and plantar aspect of left third toe and plantar aspect of left second toe and plantar aspect of left first toe Pain does not radiate. Pain currently is 3 out of 10 on a pain scale. Quality of pain is described as tender, Pain began gradually, 2-3 days ago. Is continuous. Neuro: Level of Consciousness is awake, alert, obeys commands, Oriented to person, place, time, situation, Appropriate for age. Cardiovascular: Patient's skin is warm and dry. Respiratory: Airway is patent Respiratory effort is even, unlabored, Respiratory pattern is regular, symmetrical. GI: No signs and/or symptoms were reported involving the gastrointestinal system. : No signs and/or symptoms were reported regarding the genitourinary system. EENT: No signs and/or symptoms were reported regarding the EENT system. Derm: Wound noted left foot and plantar aspect of left fifth toe and plantar aspect of left fourth toe and plantar aspect of left third toe and plantar aspect of left second toe and plantar aspect of left first toe Wound is blisters to plantar surface of left foot/toes, some intact, some broken. Musculoskeletal: Reports pain in left foot and plantar aspect of left fifth toe and plantar aspect of left fourth toe and plantar aspect of left third toe and plantar aspect of left second toe and plantar aspect of left first toe. Vital Signs: 12:41 BP 144 / 80; Pulse 73; Resp 15; Temp 98.4(TE); Pulse Ox 99% on R/A; Weight 91.17 kg; cm10 Height 6 ft. 1 in. ; Pain 0/10; 14:00 BP 145 / 83; Pulse 72; Resp 16; Pulse Ox 98% ; me1 15:00 BP 161 / 87; Pulse 84; Resp 16; Pulse Ox 97% on R/A; me1 16:00 BP 145 / 91; Pulse 91; Resp 15; Temp 98.1; Pulse Ox 98% on R/A; me1 12:41 Body Mass Index 26.52 (91.17 kg, 185.42 cm) cm10 12:41 Pain Scale: Adult cm10 ED Course: 12:08 Patient arrived in ED. ra3 12:19 Smooth Renteria MD is Attending Physician. rn 12:43 Triage completed. cm10 12:44 Arm band placed on right wrist. Patient placed in waiting room. cm10 13:27 Extremity Venous Uni Ltd US In Process Unspecified. EDMS 13:27 Lower Extremity Artery Uni Ltd US In Process Unspecified. EDMS 13:45 Patient has correct armband on for positive identification. Bed in low position. Call me1 light in reach. Side rails up X2. Provided Education on: POC. Verbalized understanding.. Client placed on continuous cardiac and pulse oximetry monitoring. NIBP monitoring applied. Pulse ox on. NIBP on. 13:45 No provider procedures requiring assistance completed. me1 13:49 Viridiana Martinez, RN is Primary Nurse. me1 14:02 CBC with Diff Sent. me1 14:02 Basic Metabolic Panel Sent. me1 14:02 Ptt, Activated Sent. me1 14:02 Protime (+inr) Sent. me1 14:02 Initial lab(s) drawn, by me, sent to lab. Inserted saline lock: 22 gauge in right me1 antecubital area, using aseptic technique. 15:15 XRAY Foot LEFT 3 View In Process Unspecified. EDMS 16:23 IV discontinued, intact, bleeding controlled, No redness/swelling at site. Pressure me1 dressing applied. Administered Medications: 16:15 Drug: Trimethoprim-Sulfamethoxazole PO (160 mg-800 mg (DS) 1 tablet PO once Route: PO; me1 16:21 Follow up: Response: No adverse reaction me1 16:15 Drug: Cephalexin PO 500 mg PO once Route: PO; me1 16:21 Follow up: Response: No adverse reaction me1 Medication: 13:45 VIS not applicable for this client. me1 Outcome: 16:06 Discharge ordered by . rn 16:23 Discharged to home ambulatory, with significant other, me1 16:23 Condition: stable 16:23 Discharge instructions given to patient, significant other, Instructed on discharge instructions, follow up and referral plans. medication usage, Demonstrated understanding of instructions, follow-up care, medications, Prescriptions given X 2, 16:23 Patient left the ED. me1 Signatures: Dispatcher [employer] EDNC Smooth Renteria MD MD rn Martinez, Clarissa, RN RN 10 Viridiana Martinez, SUKI RN id1 Vicki Vazquez ra3 Corrections: (The following items were deleted from the chart) 12:50 12:43 Allergies: amlodipine; cm10 cm10 14:34 12:41 Chief complaint: Patient states: blisters to bottom bottom of toes on left foot me1 onset last week. cm10
--- NOTE | 2024-11-16 16:07 | EDPHYS ---
Physician Documentation [facility] Name: Joon Turcios Jr Age: 78 yrs Sex: Male : 1945 Arrival Date: 11/16/2024 Time: 12:05 Bed 26 Private MD: ED Physician Smooth Renteria HPI: 11/16 13:24 This 78 yrs old Male presents to ER via Ambulatory with complaints of Left foot with rn blisters. 13:24 The patient presents with wounds. The complaints affect the left foot. Onset: The rn symptoms/episode began/occurred 1 week(s) ago. Modifying factors: The symptoms are alleviated by nothing, the symptoms are aggravated by nothing. Severity of symptoms: At their worst the symptoms were moderate, in the emergency department the symptoms are unchanged. The patient has not experienced similar symptoms in the past. Patient reports discoloration and blisters to left toes began 1 week ago, blisters popped but still has discoloration with black/blue discoloration on the bottom of the toes. No fever or chills. Has neuropathy so cannot tell if it hurts or not.. Historical: - Allergies: 12:43 Amitriptyline; cm10 12:43 Lisinopril; cm10 12:43 Nifedipine; cm10 12:43 SHELLFISH; cm10 12:43 Streptomycin; cm10 12:43 unkn HTN med; cm10 - Home Meds: 12:45 allopurinol 100 mg Oral tab 1 tab once daily [Active]; amlodipine 10 mg oral tablet 1 cm10 tab daily [Active]; apixaban 2.5 mg oral tablet 1 tab 2 times per day [Active]; ferrous gluconate 324 mg (37.5 mg iron) Oral tablet [Active]; gabapentin 300 mg Oral cap 2 caps 3 times per day [Active]; levothyroxine 50 mcg oral tablet daily [Active]; loperamide 2 mg Oral cap 1 caps three times a day [Active]; losartan 50 mg Oral tab 1 tab 2 times per day [Active]; omeprazole 20 mg Oral cpDR 1 cap once daily [Active]; - PMHx: 12:43 acid reflux; chron's; crohns disease; GERD; DVT; Gout; Hypertension; neuropathy; PE; cm10 - PSHx: 12:43 Appendectomy; bowel resection; cm10 - Immunization history:: Adult Immunizations up to date. - Infectious Disease History:: Denies. - Social history:: Smoking status: Patient denies any tobacco usage or history of. - Family history:: not pertinent. - Hospitalizations: : No recent hospitalization is reported. ROS: 13:24 Constitutional: Negative for fever, chills, and weight loss, Cardiovascular: Negative rn for chest pain, palpitations, and edema, Respiratory: Negative for shortness of breath, cough, wheezing, and pleuritic chest pain, Abdomen/GI: Negative for abdominal pain, nausea, vomiting, diarrhea, and constipation, MS/Extremity: Positive for left foot discoloration and wounds Exam: 13:24 Constitutional: This is a well developed, well nourished patient who is awake, alert, rn and in no acute distress. Cardiovascular: Regular rate and rhythm. No pulse deficits. Respiratory: No increased work of breathing, no retractions or nasal flaring. MS/ Extremity: Unable to definitively palpate a pulse in dorsalis pedis of the left foot. Left foot is pale and blanching with plantar surface of the 2nd through 3rd toes with purple discoloration and there is desquamation of the left fifth toe. No purulence. Vital Signs: 12:41 BP 144 / 80; Pulse 73; Resp 15; Temp 98.4(TE); Pulse Ox 99% on R/A; Weight 91.17 kg; cm10 Height 6 ft. 1 in. ; Pain 0/10; 14:00 BP 145 / 83; Pulse 72; Resp 16; Pulse Ox 98% ; me1 15:00 BP 161 / 87; Pulse 84; Resp 16; Pulse Ox 97% on R/A; me1 16:00 BP 145 / 91; Pulse 91; Resp 15; Temp 98.1; Pulse Ox 98% on R/A; me1 12:41 Body Mass Index 26.52 (91.17 kg, 185.42 cm) cm10 12:41 Pain Scale: Adult cm10 MDM: 12:19 Medical Screening Exam initiated rn 16:05 Differential diagnosis: cellulitis. Differential diagnosis: DVT, arterial insufficiency rn or occlusion. Data reviewed: vital signs, nurses notes. Counseling: I had a detailed discussion with the patient and/or guardian regarding the historical points, exam findings, and any diagnostic results supporting the discharge/admit diagnosis, lab results, radiology results, the need for outpatient follow up, to return to the emergency department if symptoms worsen or persist or if there are any questions or concerns that arise at home. Special discussion: I discussed with the patient/guardian in detail that at this point there is no indication for admission to the hospital. It is understood, however, that if the symptoms persist or worsen the patient needs to return immediately for re-evaluation. ED course: Ultrasound negative for DVT or arterial occlusion. Speaking to the patient more patient states is just got new shoes, wears a brace that is full-length all the way to the toes for dropfoot and puts an insole between his foot and the brace. Given the majority of bruising is on the plantar surface of the toes told him to reevaluate his set up as might be causing unnecessary rubbing or pressure on the tips of his toes given he is neuropathic and cannot feel his toes. Will place on antibiotics for possible early cellulitis or superimposed cellulitis and given strict return precautions.. 11/16 12:47 Order name: CBC with Diff; Complete Time: 14:56 rn 11/16 12:47 Order name: Basic Metabolic Panel; Complete Time: 14:56 rn 11/16 12:47 Order name: Protime (+inr); Complete Time: 14:56 rn 11/16 12:47 Order name: Ptt, Activated; Complete Time: 14:56 rn 11/16 12:47 Order name: Extremity Venous [employer] US; Complete Time: 15:57 rn 11/16 12:47 Order name: Lower Extremity Artery [employer] US; Complete Time: 15:57 rn 11/16 12:47 Order name: XRAY Foot LEFT 3 View; Complete Time: 16:22 rn 11/16 12:47 Order name: IV Start; Complete Time: 14:02 rn Administered Medications: 16:15 Drug: Trimethoprim-Sulfamethoxazole PO (160 mg-800 mg (DS) 1 tablet PO once Route: PO; me1 16:21 Follow up: Response: No adverse reaction me1 16:15 Drug: Cephalexin PO 500 mg PO once Route: PO; me1 16:21 Follow up: Response: No adverse reaction me1 Disposition Summary: 11/16/24 16:06 Discharge Ordered Notes: Location: Home rn Problem: new rn Symptoms: have improved rn Condition: Stable rn Diagnosis - Cellulitis of unspecified toe rn Followup: rn - With: Private Physician - When: As needed - Reason: Recheck today's complaints, Re-evaluation by your physician Discharge Instructions: - Discharge Summary Sheet rn - Cellulitis, Adult rn Forms: - Medication Reconciliation Form rn - 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 - Prescription Opioid Use rn - Patient Portal Instructions rn - Leadership Thank You Letter rn Prescriptions: - Cephalexin 500 mg Oral Capsule - take 1 capsule ORAL route every 12 hours for 10 days; 20 capsule; Refills: 0, rn Product Selection Permitted - Bactrim DS 800-160 mg Oral Tablet - take 1 tablet ORAL route every 12 hours for 10 days; 20 tablet; Refills: 0, rn Product Selection Permitted Signatures: Dispatcher [employer] EDMS Smooth Renteria MD MD rn Martinez, Clarissa, RN RN cm10 Viridiana Martinez RN RN me1 Corrections: (The following items were deleted from the chart) 12:47 12:47 CBC+H.LAB.BRZ ordered. EDMS EDMS 12:47 12:47 BASIC METABOLIC PANEL+C.LAB.BRZ ordered. EDMS EDMS 12:47 12:47 PROTIME (+INR)+COAG.LAB.BRZ ordered. EDMS EDMS 12:47 12:47 PTT, ACTIVATED+COAG.LAB.BRZ ordered. EDMS EDMS 12:47 12:47 Extremity Venous Uni Ltd+US.RAD.BRZ ordered. EDMS EDMS 12:47 12:47 Lower Extremity Artery Uni Ltd+US.RAD.BRZ ordered. EDMS EDMS 12:50 12:43 Allergies: amlodipine; cm10 cm10
--- NOTE | 2024-11-16 16:11 | RAD REPORT ---
EXAMINATION: XR Foot Left 3 View CLINICAL INDICATION: Male, 78 years old. [facility] MAIN discoloration of toes Bed Name: 1 TECHNIQUE: 3 view radiographs of the left foot were obtained. COMPARISON: No prior exam. FINDINGS: No evidence of fracture or dislocation. Normal alignment. No suspicious focal osseous lesio n. Moderate degenerative changes along the mid foot and the lesser degree throughout the interphalangeal joints and first metatarsophalangeal joint. Soft tissue swelling about the toes. Smal l calcaneal spur.. IMPRESSION: No acute or significant abnormalities. Digital soft tissue swelling, and scattered degenerative montiel es as above.
[2024-11-16] MEDS ORDERED: SMZ./TMP. 800/160 MG TABLET ONE (16:14)
[2024-11-16] MEDS ORDERED: CEPHALEXIN 250 MG CAP ONE (16:14)
[2024-11-17 16:56] VITALS: BP 145/91; TEMP 98.1; O2SAT 98
== END 2024-11-16 16:23 | disposition home or self-care (01) ==
LOC: ER 12:05
DX: L03.032 Cellulitis of left toe (principal)
CPT/HCPCS: 36415; 80048; 85025; 85610; 85730; 93926; 93971; 99284

== ENCOUNTER 2024-12-05 14:00 | Inpatient (IN) | payer OTHER ==
--- OUTSIDE RECORDS SUMMARY | 2024-12-05 14:04 | XMS REPORT | Continuity of Care Document ---
Author Name Unknown Address [address] [facility] [address] [place] [address] [facility] thconnect Address [address] [facility] 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 Role Phone Pcp, Patient Does Not Have A Primary Care Physic ju Radiology Attending Clinician Unavailable RADIOLOGY Attending Clinician Unavailable Payers Payer Name Policy Type Policy Number Effective Date Expirati on Date Source Allergies, Adverse Reactions, Alerts Allergy Name Allergy Type Status Severity Reaction(s) Onset Date Inactive Date Treating Clinician Comments Source NO KNOWN ALLERGIE S Drug Class Active [facility] Social History Social Habit Start Date Stop Date Quantity Comments Source Sexual orientation U [facility] Sex Assigned At [birth year]00 [facility] Smoking Status Start Date Stop Date Source Tobacco smoking consumption unknown [facility] Procedures Procedure Date / Time Performed Performing Clinician Source [facility] PATIENT FINANCIAL POLICY 2023-10-02 18:17:39 Doctor Unassigned, [place] [facility] NO SHOW OR MISSED APPOINTMENT POLICY ACKNOWLEDGEMENT 2023-10-02 18:17:03 Doctor Unassigned, [place] [facility] NOTICE OF PRIVACY PRACTICES 2023-10-02 18:16:37 Doctor Unassigned, [place] [facility] CONSENT/REFUSAL FOR DIAGNOSIS AND TREATMENT 2023-10-02 18:16:01 Doctor Unassigned, [place] [facility] ASSIGNMENT OF BENEFITS 2023-10-02 18:15:26 Docto r Unassigned, [place] [facility] Encounters Start Date/Time End Date/Time Encounter Type Admission Type Attending Clinicians Care Facility Care Department Encounter ID Source 2023-10-02 12:18:20 2023-10-02 23:59:00 Hospital Encounter Radiology [facility] [id number] [facility] 2023-10-02 00:00:00 2023-10-02 23:59:00 Outpatient [facility] [id number] [facility]
[2024-12-05] MEDS ORDERED: ONDANSETRON 4 MG/2 ML VIAL ONE ×2 (14:48→20:27)
[2024-12-05] MEDS ORDERED: FENTANYL CITR 100 MCG/2 ML ONE ×2 (14:48→20:27)
[2024-12-05 15:22] LABS: Absolute Lymphocytes (CBC) 0.5 K/uL (0.7-4.9); Absolute Monocytes 0.5 K/uL (0.1-1.3); Absolute Neutrophil 8.8 K/uL (1.8-8.0); Basophils % 0.1 % (0-1.3); Hematocrit 38.8 % (39.6-49.0); Hemoglobin 13.5 g/dL (13.6-17.9); Lymphocytes % 5.1 % (15.3-44.8); MCHC 34.7 g/dL (32.0-36.0); MCV 89.3 fL (80-100); MPV 7.6 fL (7.6-11.3); Monocytes % 4.6 % (3.3-12.3); Neutrophils % 90.2 % (41.7-73.7); Platelets 218 thou/uL (152-406); RBC Red Blood Cell Count 4.34 M/uL (4.33-5.43); Red Cell Distribution Width 13.4 % (12.1-15.2)
[2024-12-05 15:32] LABS: PT Prothrombin Time 14.5 SECONDS (9.4-12.5); PTT, Activated Partial Thromb 28.3 SECONDS (24.3-36.9); Protime INR 1.39
[2024-12-05 15:33] LABS: SARS-CoV-2 Antigen CONTROL BLUE LINE VIS/BG OK; SARS-CoV-2 Antigen Rapid Res Negative (Negative)
[2024-12-05 15:39] LABS: Albumin 3.2 g/dL (3.4-5.0); Albumin/Globulin Ratio 0.8 (1.1-1.8); Anion Gap 8.7 mEq/L (5.0-15.0); Bilirubin Total 0.5 mg/dL (0.2-1.0); C-Reactive Protein 13.3 mg/L (<3.00); Globulin 4.2 g/dL (2.3-3.5); Potassium 3.7 mEq/L (3.5-5.1); Protein, Total 7.4 g/dL (6.4-8.2)
[2024-12-05] MEDS ORDERED: VANCOMYCIN 1 GM/VIAL ONE (16:20)
[2024-12-05] MEDS ORDERED: NA CHLORIDE 0.9% 250 ML ONE (16:20)
[2024-12-05] MEDS ORDERED: NA CHLORIDE 0.9% 1,000 ML ONE (16:21)
--- NOTE | 2024-12-05 16:51 | RAD REPORT ---
EXAMINATION: XR Foot Left 3 View CLINICAL INDICATION: Male, 78 years old. [facility] MAIN PAIN Bed Name: 2 TECHNIQUE: 3 view radiographs of the left foot were obtained. COMPARISON: No prior exam. FINDINGS: No evidence of fracture or dislocation. Normal alignment. No suspicious focal osseous lesio n. Mild to moderate degenerative changes of the first digit and midfoot. Small calcaneal spur. Mild soft tissue swelling about the dorsum of the foot. IMPRESSION: No acute osseous abnormalities. Mild dorsal soft tissue swelling. Degenerative changes as above.
--- NOTE | 2024-12-05 16:52 | RAD REPORT ---
EXAMINATION:Lower Extremity Artery Uni Ltd CLINICAL INDICATION: Male, 78 years old. [facility] MAIN left PAIN Bed Name: 2 TECHNIQUE: Arterial duplex ultrasound was performed of the Left lower extremity with real-time, color -flow, and spectral wave Doppler evaluation. COMPARISON: No prior exam. FINDINGS: Mild common femoral artery plaque. Triphasic waveforms are seen throughout the evaluated Right lower extremity arterial system, to the level of the dorsalis pedis artery. No other suspicious findings. IMPRESSION: No evidence of significant peripheral vascular disease.
--- NOTE | 2024-12-05 16:52 | RAD REPORT ---
EXAMINATION: US LEFT LOWER EXTREMITY VENOUS DOPPLER CLINICAL INDICATION: [facility] MAIN left SWELLING Bed Name: 2 Y TECHNIQUE: Complete bilateral duplex sonography of the LEFT lower extremity veins was performed. The examination included compression for vein patency, color Doppler imaging and flow augmentation in response to distal compression of the distal external iliac, common femoral, femoral, popliteal, tibi al, and great and small saphenous veins. COMPARISON: No prior exam. FINDINGS: Duplex sonography testing of the veins of the LEFT lower extremity was performed. Color flow imaging shows all veins to be compressible with [id number] color filling. Pulsatile and phasic flow is present within all lower extremity deep and superficial veins examined. IMPRESSION: No evidence of deep venous thrombosis.
--- NOTE | 2024-12-05 16:54 | ER ---
Nurse's Notes [facility] Name: Joon Turcios Jr Age: 78 yrs Sex: Male : 1945 Arrival Date: 12/05/2024 Time: 14:00 Bed 2 Private MD: Diagnosis: Cellulitis of left lower limb Presentation: 12/05 14:13 Chief complaint: Patient states: Generalized body aches, fever, vomiting onset today. cm10 TMAX 100. Coronavirus screen: Client denies travel out of the [place] in the last 14 days. Ebola Screen: Patient denies travel to an Ebola-affected area in the 21 days before illness onset. Initial Sepsis Screen: Does the patient meet any 2 criteria? HR > 90 bpm. Does the patient have a suspected source of infection? No. Patient's initial sepsis screen is negative. Risk Assessment: Do you want to hurt yourself or someone else? Patient reports no desire to harm self or others. Onset of symptoms was December 05, 2024. 14:13 Method Of Arrival: Wheelchair cm10 14:13 Acuity: [place] 3 cm10 Triage Assessment: 14:15 General: Appears uncomfortable, Behavior is cooperative. Neuro: No deficits noted. cm10 Level of Consciousness is awake, alert, obeys commands, Oriented to person, place, time, situation, Appropriate for age. Respiratory: No deficits noted. Airway is patent Respiratory effort is even, unlabored, Respiratory pattern is regular, symmetrical. Historical: - Allergies: 14:14 Amitriptyline; cm10 14:14 Lisinopril; cm10 14:14 Nifedipine; cm10 14:14 SHELLFISH; cm10 14:14 Streptomycin; cm10 14:14 unkn HTN med; cm10 - PMHx: 14:14 acid reflux; crohns disease; chron's; DVT; GERD; Hypertension; neuropathy; Gout; PE; cm10 - PSHx: 14:14 Appendectomy; bowel resection; cm10 - Immunization history:: Adult Immunizations unknown. - Infectious Disease History:: Denies. - Social history:: Smoking status: Patient denies any tobacco usage or history of. Screenin:39 [facility] ED Fall Risk Assessment (Adult) History of falling in the last 3 months, ld1 including since admission No falls in past 3 months (0 pts) Confusion or Disorientation No (0 pts) Intoxicated or Sedated No (0 pts) Impaired Gait No (0 pts) Mobility Assist Device Used No (0 pt) Altered Elimination No (0 pt) Score/Fall Risk Level 0 - 2 = Low Risk Oriented to surroundings, Hourly rounding (assess needs \T\ fall precautionary measures) done. Abuse screen: Denies threats or abuse. Denies injuries from another. Nutritional screening: No deficits noted. Tuberculosis screening: No symptoms or risk factors identified. Assessment: 16:39 General: Appears in no apparent distress. comfortable, Behavior is calm, cooperative, ld1 appropriate for age. Pain: Denies pain. Neuro: Level of Consciousness is awake, alert, obeys commands, Oriented to person, place, time, situation, Appropriate for age. Cardiovascular: Capillary refill < 3 seconds Patient's skin is warm and dry. Respiratory: Airway is patent Respiratory effort is even, unlabored. GI: Abdomen is flat, non-distended. : No signs and/or symptoms were reported regarding the genitourinary system. EENT: No signs and/or symptoms were reported regarding the EENT system. Derm: No signs and/or symptoms reported regarding the dermatologic system. Musculoskeletal: No signs and/or symptoms reported regarding the musculoskeletal system. 16:39 Derm: Wound noted left foot. ld1 19:46 Reassessment: Patient appears in no apparent distress at this time. Patient and/or bm8 family updated on plan of care and expected duration. Pain level reassessed. Patient is alert, oriented x 3, equal unlabored respirations, skin warm/dry/pink. reports feeling very cold. Jonah hugger applied to pt at 32C for comfort. 20:50 Reassessment: Patient appears in no apparent distress at this time. Patient and/or bm8 family updated on plan of care and expected duration. Pain level reassessed. Patient is alert, oriented x 3, equal unlabored respirations, skin warm/dry/pink. Patient states feeling better. Patient states symptoms have improved. Pain: Complains of pain in left foot Pain currently is 6 out of 10 on a pain scale. 22:27 Reassessment: Patient appears in no apparent distress at this time. Patient and/or bm8 family updated on plan of care and expected duration. Pain level reassessed. Patient is alert, oriented x 3, equal unlabored respirations, skin warm/dry/pink. Patient states feeling better. Patient states symptoms have improved. 22:32 Reassessment: Report to Leia Walters at [facility] in [place]. bm8 Vital Signs: 14:13 BP 119 / 96; Pulse 114; Resp 19; Temp 98.8(O); Pulse Ox 91% on R/A; Weight 90.72 kg; cm10 Height 6 ft. 1 in. ; Pain 10/10; 14:55 BP 103 / 56; Pulse 100; Resp 18; Pulse Ox 93% on R/A; ld1 16:38 BP 107 / 61; Pulse 89; Resp 18; Pulse Ox 95% on R/A; ld1 19:46 BP 147 / 72; Pulse 93; Resp 23; Temp 98.7; Pulse Ox 97% ; Pain 3/10; bm8 20:50 BP 123 / 73; Pulse 80; Resp 21; Temp 98.7; Pulse Ox 95% ; Pain 6/10; bm8 22:27 BP 145 / 75; Pulse 76; Resp 18; Temp 98.7; Pulse Ox 96% on R/A; Pain 2/10; bm8 14:13 Body Mass Index 26.39 (90.72 kg, 185.42 cm) cm10 14:13 Pain Scale: Adult cm10 19:46 Pain Scale: Adult bm8 20:50 Pain Scale: Adult bm8 22:27 Pain Scale: Adult bm8 [place] Coma Score: 19:46 Eye Response: spontaneous(4). Motor Response: obeys commands(6). Verbal Response: bm8 oriented(5). Total: 15. 20:50 Eye Response: spontaneous(4). Motor Response: obeys commands(6). Verbal Response: bm8 oriented(5). Total: 15. 22:27 Eye Response: spontaneous(4). Motor Response: obeys commands(6). Verbal Response: bm8 oriented(5). Total: 15. ED Course: 14:03 Patient arrived in ED. al6 14:10 Silas Edouard PA is PHCP. cp 14:10 Smooth Renteria MD is Attending Physician. cp 14:14 Triage completed. cm10 14:15 Arm band placed on right wrist. Patient placed in an exam room, on a stretcher. cm10 14:22 Isai Oliveira, RN is Primary Nurse. bp 15:02 XRAY Foot LEFT 3 View In Process Unspecified. EDMS 15:12 Blood Culture Adult (2) Sent. ld1 15:12 Lactate w/ 2H reflex if indic. Sent. ld1 15:12 SARS RAPID Sent. ld1 15:12 Influenza Screen (a \T\ B) Sent. ld1 15:13 Inserted saline lock: 20 gauge in right forearm, using aseptic technique. Blood ld1 collected. Flushed with 10 mL NS. 16:01 Extremity Venous Uni Ltd US In Process Unspecified. EDMS 16:01 US LE Artery Uni Ltd In Process Unspecified. EDMS 16:39 Patient has correct armband on for positive identification. Placed in gown. Bed in low ld1 position. Call light in reach. Side rails up X2. cardiac monitor on. Pulse ox on. NIBP on. Door closed. Noise minimized. Warm blanket given. 16:39 No provider procedures requiring assistance completed. ld1 16:[address] is Hospitalizing Provider. cp 19:31 Faxed clinical's to the [facility] for transfer. sp 19:40 Attending Physician role handed off by Smooth Renteria MD sp4 19:40 Td Blank MD is Attending Physician. sp4 19:46 Patient maintains SpO2 saturation greater than 95% on room air. bm8 20:41 [facility] t[facility] clinical's to [phone]. sp 20:50 Provided Education on: need for transfer. bm8 20:50 Patient transferred, IV remains in place. Wound care: to cellulitis located on left bm8 foot was dressed with Kerlix, Patient tolerated well. 21:47 called [facility] Lesley is in the ER talking to MD regarding transfer. sp 22:[address] Maury Brown [facility] 2154 Lesley Teague admin approval. report sp number [phone] [id number]. Administered Medications: 15:13 Drug: fentaNYL (PF) IVP 25 mcg IVP once Route: IVP; Site: right forearm; ld1 16:40 Follow up: Response: No adverse reaction ld1 15:13 Drug: Ondansetron IVP 4 mg IVP once; over 2 minutes Route: IVP; Site: right forearm; ld1 16:40 Follow up: Response: No adverse reaction ld1 16:15 Drug: NS 0.9% IV 1000 ml IV at 1000 ml once; to be given as a bolus over 60 minutes bp Route: IV; Rate: 1000 ml; Site: right forearm; 19:48 Follow up: Response: No adverse reaction; IV Status: Completed infusion; IV Intake: bm8 1000ml 16:17 Drug: vancoMYCIN IVPB 1 grams IVPB once over 2 hrs Route: IVPB; Infused Over: 2 hrs; bp Site: right forearm; 19:47 Follow up: Response: No adverse reaction; IV Status: Completed infusion; IV Intake: bm8 250ml 20:50 Drug: fentaNYL (PF) IVP 50 mcg IVP once Route: IVP; Site: right forearm; bm8 22:28 Follow up: Response: No adverse reaction bm8 20:50 Drug: Ondansetron IVP 4 mg IVP once; over 2 minutes Route: IVP; Site: right forearm; bm8 22:28 Follow up: Response: No adverse reaction bm8 20:50 Drug: Cefepime IVPB 2 grams IVPB at 200 ml/hr once over 30 mins; (mix in NS 100 mL) bm8 Route: IVPB; Rate: 200 ml/hr; Infused Over: 30 mins; Site: right forearm; 22:28 Follow up: Response: No adverse reaction; IV Status: Completed infusion; IV Intake: bm8 100ml Medication: 16:39 VIS not applicable for this client. ld1 Intake: 19:47 IV: 250ml; Total: 250ml. bm8 19:48 IV: 1000ml; Total: 1250ml. bm8 22:28 IV: 100ml; Total: 1350ml. bm8 Outcome: 16:54 Decision to Hospitalize by Provider. cp 19:25 ER care complete, transfer ordered by MD. cp 22:33 Transferred by ground EMS to [facility] Transfer form completed. bm8 X-rays sent w/ patient. 22:33 Condition: stable 22:33 Instructed on the need for transfer, Demonstrated understanding of instructions, follow-up care, 23:02 Patient left the ED. dd2 Signatures: Dispatcher [employer] EDMS Marium Martinez Corey, PA PA cp Peltier, Brian, RN RN bp Evelia White RN RN ld1 Td Blank MD MD sp4 Radha Cleary, RN RN cm10 Lyle Schwab, RN RN bm8 BELGICA MENJIVAR, RN RN dd2 Jovanna Frausto6
--- NOTE | 2024-12-05 16:54 | EDPHYS ---
Physician Documentation [facility] Name: Joon Turcios Jr Age: 78 yrs Sex: Male : 1945 Arrival Date: 12/05/2024 Time: 14:00 Bed 2 Private MD: ED Physician Td Blank HPI: 12/05 14:45 This 78 yrs old Male presents to ER via Wheelchair with complaints of Fever, Weakness, cp Vomiting. 14:45 The patient reports fever, that was measured at 100 degrees Fahrenheit. Onset: The cp symptoms/episode began/occurred suddenly, this afternoon. Associated signs and symptoms: Pertinent positives: weakness, 1 episode of vomiting. 14:45 Severity of symptoms: in the emergency department the symptoms are unchanged despite cp home interventions. Historical: - Allergies: 14:14 Amitriptyline; cm10 14:14 Lisinopril; cm10 14:14 Nifedipine; cm10 14:14 SHELLFISH; cm10 14:14 Streptomycin; cm10 14:14 unkn HTN med; cm10 - PMHx: 14:14 acid reflux; crohns disease; chron's; DVT; GERD; Hypertension; neuropathy; Gout; PE; cm10 - PSHx: 14:14 Appendectomy; bowel resection; cm10 - Immunization history:: Adult Immunizations unknown. - Infectious Disease History:: Denies. - Social history:: Smoking status: Patient denies any tobacco usage or history of. ROS: 14:50 Constitutional: Positive for body aches, fever, Negative for poor PO intake, cp 14:50 Eyes: Negative for injury, pain, redness, and discharge, cp 14:50 Respiratory: Positive for cough, 14:50 Abdomen/GI: Negative for abdominal pain, diarrhea, constipation, active vomiting, 14:50 MS/extremity: Positive for pain, 14:50 Neuro: Positive for weakness, Negative for altered mental status, numbness, 14:50 All other systems are negative, Exam: 14:55 Constitutional: The patient appears in no acute distress, alert, awake, cp non-diaphoretic, non-toxic, well developed, well nourished, uncomfortable, 14:55 Head/Face: Normocephalic, atraumatic. cp 14:55 Eyes: Periorbital structures: appear normal, Conjunctiva: normal, no exudate, no injection, Sclera: no appreciated abnormality, Lids and lashes: appear normal, bilaterally, 14:55 ENT: External ear(s): are unremarkable, Nose: is normal, Mouth: Lips: moist, Oral mucosa: moist, 14:55 Chest/axilla: Inspection: normal, 14:55 Cardiovascular: Rate: tachycardic, Rhythm: regular, 14:55 Respiratory: the patient does not display signs of respiratory distress, Respirations: normal, no use of accessory muscles, no retractions, labored breathing, is not present, Breath sounds: are clear throughout, no decreased breath sounds, no stridor, no wheezing, 14:55 Abdomen/GI: Inspection: abdomen appears normal, Palpation: abdomen is soft and non-tender, 14:55 Back: pain, is absent, ROM is normal, 14:55 Musculoskeletal/extremity: Extremities: noted in the left foot: skin discoloration noted plantar side of toes with erythema and swelling, 15:15 ECG was reviewed by the Attending Physician. cp Vital Signs: 14:13 BP 119 / 96; Pulse 114; Resp 19; Temp 98.8(O); Pulse Ox 91% on R/A; Weight 90.72 kg; cm10 Height 6 ft. 1 in. ; Pain 10/10; 14:55 BP 103 / 56; Pulse 100; Resp 18; Pulse Ox 93% on R/A; ld1 16:38 BP 107 / 61; Pulse 89; Resp 18; Pulse Ox 95% on R/A; ld1 19:46 BP 147 / 72; Pulse 93; Resp 23; Temp 98.7; Pulse Ox 97% ; Pain 3/10; bm8 20:50 BP 123 / 73; Pulse 80; Resp 21; Temp 98.7; Pulse Ox 95% ; Pain 6/10; bm8 22:27 BP 145 / 75; Pulse 76; Resp 18; Temp 98.7; Pulse Ox 96% on R/A; Pain 2/10; bm8 14:13 Body Mass Index 26.39 (90.72 kg, 185.42 cm) cm10 14:13 Pain Scale: Adult cm10 19:46 Pain Scale: Adult bm8 20:50 Pain Scale: Adult bm8 22:27 Pain Scale: Adult bm8 [place] Coma Score: 19:46 Eye Response: spontaneous(4). Motor Response: obeys commands(6). Verbal Response: bm8 oriented(5). Total: 15. 20:50 Eye Response: spontaneous(4). Motor Response: obeys commands(6). Verbal Response: bm8 oriented(5). Total: 15. 22:27 Eye Response: spontaneous(4). Motor Response: obeys commands(6). Verbal Response: bm8 oriented(5). Total: 15. MDM: 14:17 Medical Screening Exam initiated cp 16:00 Data reviewed: vital signs, nurses notes, lab test result(s), EKG, radiologic studies, cp plain films, and as a result, I will admit patient. 16:00 Management of patient was discussed with the following: Hospitalist: DR Lane consulted and will admit patient. 19:25 ED course: Discussed admission with patient who now informs me that they would like cp transfer to [facility] after being told admission would not be covered by [facility]. 12/05 14:42 Order name: Blood Culture Adult (2) cp 12/05 14:42 Order name: CBC with Diff; Complete Time: 15:49 cp 12/05 15:49 Interpretation: Normal except: HGB 13.5; HCT 38.8; CARMELITA% 90.2; LYM% 5.1; NEUT A 8.8; cp LYMA 0.5. 12/05 14:42 Order name: CMP; Complete Time: 15:49 cp 12/05 14:42 Order name: Lactate w/ 2H reflex if indic.; Complete Time: 15:49 cp 12/05 14:42 Order name: Protime (+inr); Complete Time: 15:49 cp 12/05 14:42 Order name: Ptt, Activated; Complete Time: 15:49 cp 12/05 14:42 Order name: Urinalysis w/ reflexes cp 12/05 14:42 Order name: CRP; Complete Time: 15:49 cp 12/05 14:42 Order name: Influenza Screen (a \T\ B); Complete Time: 15:49 cp 12/05 14:42 Order name: SARS RAPID; Complete Time: 15:49 cp 12/05 15:49 Order name: Ghost Lactate-NO COLLECT Timer; Complete Time: 19:40 EDMS 12/05 19:28 Order name: Lactate Sepsis 2 HR Follow-up; Complete Time: 19:40 EDMS 12/05 14:42 Order name: XRAY Foot LEFT 3 View; Complete Time: 16:54 cp 12/05 16:55 Interpretation: Reviewed report. cp 12/05 14:42 Order name: Extremity Venous Uni Ltd ; Complete Time: 16:54 cp 12/05 14:42 Order name: US LE Artery Uni Ltd; Complete Time: 16:54 cp 12/05 14:42 Order name: EKG; Complete Time: 14:42 cp 12/05 14:42 Order name: Accucheck; Complete Time: 15:13 cp 12/05 14:42 Order name: Cardiac monitoring; Complete Time: 15:13 cp 12/05 14:42 Order name: EKG - Nurse/Tech; Complete Time: 15:13 cp 12/05 14:42 Order name: IV Saline Lock - Large Bore; Complete Time: 15:12 cp 12/05 14:42 Order name: Labs collected and sent; Complete Time: 15:12 cp 12/05 14:42 Order name: O2 Per Protocol; Complete Time: 14:55 cp 12/05 14:42 Order name: O2 Sat Monitoring; Complete Time: 14:55 cp 12/05 14:42 Order name: Vital Signs; Complete Time: 14:55 cp 12/05 20:22 Order name: Wound Care: Wrap with Kerlix; Complete Time: 20:50 sp4 EC:15 Rate is 98 beats/min. Rhythm is regular. QRS interval is normal. QT interval is normal. cp T waves are Inverted in leads III, aVR. Interpreted by me. Reviewed by me. Administered Medications: 15:13 Drug: fentaNYL (PF) IVP 25 mcg IVP once Route: IVP; Site: right forearm; ld1 16:40 Follow up: Response: No adverse reaction ld1 15:13 Drug: Ondansetron IVP 4 mg IVP once; over 2 minutes Route: IVP; Site: right forearm; ld1 16:40 Follow up: Response: No adverse reaction ld1 16:15 Drug: NS 0.9% IV 1000 ml IV at 1000 ml once; to be given as a bolus over 60 minutes bp Route: IV; Rate: 1000 ml; Site: right forearm; 19:48 Follow up: Response: No adverse reaction; IV Status: Completed infusion; IV Intake: bm8 1000ml 16:17 Drug: vancoMYCIN IVPB 1 grams IVPB once over 2 hrs Route: IVPB; Infused Over: 2 hrs; bp Site: right forearm; 19:47 Follow up: Response: No adverse reaction; IV Status: Completed infusion; IV Intake: bm8 250ml 20:50 Drug: fentaNYL (PF) IVP 50 mcg IVP once Route: IVP; Site: right forearm; bm8 22:28 Follow up: Response: No adverse reaction bm8 20:50 Drug: Ondansetron IVP 4 mg IVP once; over 2 minutes Route: IVP; Site: right forearm; bm8 22:28 Follow up: Response: No adverse reaction bm8 20:50 Drug: Cefepime IVPB 2 grams IVPB at 200 ml/hr once over 30 mins; (mix in NS 100 mL) bm8 Route: IVPB; Rate: 200 ml/hr; Infused Over: 30 mins; Site: right forearm; 22:28 Follow up: Response: No adverse reaction; IV Status: Completed infusion; IV Intake: bm8 100ml Disposition: 12/06 02:36 Co-signature as Attending Physician, Td Blank MD I agree with the assessment sp4 and plan of care. I reviewed the patient's care provided by the Advanced Practice Provider and agree with the diagnosis and treatment plan. Disposition Summary: 12/05/24 19:25 Transfer Ordered Notes: Transfer Location: [facility] cp Reason: Higher level of care cp Condition: Stable(12/05/24 19:25) cp Problem: new(12/05/24 19:25) cp Symptoms: have improved(12/05/24 19:25) cp Accepting Physician: Doctor(12/05/24 23:02) dd2 Diagnosis - Cellulitis of left lower limb(12/05/24 19:25) cp Forms: - Medication Reconciliation Form cp - SBAR form cp Signatures: Dispatcher [employer] EDMS Silas Edouard PA PA cp Mati Cordova RN RN Isai Caro RN RN Evelia Blackwell RN RN Td Land MD MD sp4 Radha Cleary RN RN cm10 Lyle Schwab RN RN bm8 BELGICA MENJIVAR RN RN dd2 Corrections: (The following items were deleted from the chart) 02 14:42 14:42 Foot Left 3 View+RAD.RAD.BRZ ordered. EDMS EDMS 14:42 14:42 Extremity Venous Uni Ltd+US.RAD.BRZ ordered. EDMS EDMS 14:43 14:43 Lower Extremity Artery Uni Ltd+US.RAD.BRZ ordered. EDMS EDMS 17:47 16:54 Telemetry/MedSurg (Inpatient) cp ja1 17:47 16:54 cp ja1 19:24 16:54 Inpatient Admission cp cp 19:24 16:[address]-Rahat cp cp 19:24 16:54 Stable cp cp 19:24 16:54 new cp cp 19:24 16:54 have improved cp cp 19:24 16:54 Standard cp cp 19:24 16:54 Cellulitis of left lower limb cp cp 19:24 17:47 [facility] ER HOLD ja1 cp 19:24 17:47 ERHOLD- ja1 cp 23:02 19:25 Doctor cp dd2
[2024-12-05] MEDS ORDERED: ACETAMINOPHEN 500 MG TAB PO PRN (17:08)
[2024-12-05] MEDS ORDERED: ALBUTEROL 2.5 MG/3 ML NEB SOL NEB PRN (17:08)
[2024-12-05] MEDS ORDERED: ACETAMINOPHEN 325 MG TABLET PO PRN (17:08)
[2024-12-05] MEDS ORDERED: ONDANSETRON 4 MG/2 ML VIAL IV PRN (17:08)
--- NOTE | 2024-12-05 17:24 | P.HP ---
Certification for Inpatient With expected LOS: >2 Midnights Practitioner: I am a practitioner with admitting privileges, knowledge of patient current condition, hospital course, and medical plan of care. Services: Services provided to patient in accordance with Admission requirements found in Title 42 Section 412.3 of the Code of Federal Regulations Patient History Date of Service: 12/05/24 Reason for admission: Nonhealing wound of the left foot History of Present Illness: This is 78 years old gentleman with a past medical history notable for Crohn's disease not on immunosuppressant, hypertension who presented to emergency room for nonhealing wound of the left foot for a month, nausea and vomiting and subjective fever at home up to 100 Fahrenheit today. He had wound of the plantar side of the left foot after using [facility] a month ago, has been going to [facility] for wound care and oral antibiotics but no significant improvement. Denied any purulent discharge or bleeding. He cannot remember the name of the oral antibiotics he tried but one of them was sulfa. Upon arrival at emergency room his vital sign is stable, no fever, unremarkable left finding except a mildly elevated lactic acid. The patient received 1 L of normal saline, ondansetron, 1 dose of IV Vanco and being admitted on general medical floor. Allergies lisinopril Allergy (Severe, Verified 08/31/20 09:15) Shortness of breath, Swelling Home Medications: Allopurinol 100 mg PO DAILY 08/31/20 Apixaban [Eliquis] 5 mg PO BID 08/31/20 Cholecalciferol (Vitamin D3) [Vitamin D3] 1,000 unit PO DAILY 08/31/20 Cholestyramine/Aspartame [Cholestyramine Light Packet] 4 gm PO TID 08/31/20 Cyanocobalamin (Vitamin B-12) [B-12] 1,000 mcg PO DAILY 08/31/20 Gabapentin 300 mg PO BID 08/31/20 Loperamide [Imodium*] 2 mg PO BID 08/31/20 Losartan Potassium [Cozaar*] 50 mg PO BID 08/31/20 Magnesium Oxide 420 mg PO BID 08/31/20 Omeprazole 20 mg PO DAILY 08/31/20 Guaifenesin/Dextromethorphan [Tussin Dm Cough-Chest Congest] 5 ml PO Q4H PRN #1 bottle 09/25/20 Hcod/Chlorphen [Tussionex] 5 ml PO Q12H #1 btl 09/25/20 Metoprolol Tartrate [Lopressor*] 25 mg PO BID 6AM 6PM #60 tab 09/25/20 predniSONE [Deltasone] 20 mg PO BID #28 tab 09/25/20 - Past Medical/Surgical History Diabetic: No -: Hypertension -: COVID Pneumonia -: Crohn's disease -: GERD -: neuropathy -: AAA -: abdominal surgery -: ileostomy with a reversal Psychosocial/ Personal History: Patient lives at home. Patient is . - Social History Alcohol use: No CD- Drugs: No Caffeine use: No Review of Systems Other: Consitutional; fever(+), chills (+), rigor(-), night sweat(-), unintentional weight loss(-), malaise (-) HEENT; diplopia (-), rhinorrhea (-), epistaxis (-), otorrhea (-), otalgia (-) Respiratory; shortness of breath (-), wheezing (-), cough (-), sputum (-), pleuritic chest pain (-) Cardiovascular; chest pain (-), peripheral edema (-), paroxysmal nocturnal dyspnea (-), orthopnea (-) Gastrointestinal; nausea (+), vomiting (+), abdominal pain (-), diarrhea (-), constipation (-), melena (-), hematochezia (-) Genitourinary; urinary frequency (-), dysuria (-), urgency (-), flank pain (-), gross hematuria (-), incontinence (-) Skin; rash (-), pruritus (-) 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 General: Not acutely ill looking, in no apparent distress,. HEENT: Normocephalic, atraumatic, nonicteric sclera, nonanemic conjunctive. Neck: Supple, without JVD or goiter or thyroid mass. Respiratory: Normal breathing effort, clear to auscultation bilaterally, no crackles no wheezing or rhonchi. Cardiovascular: Regular rate and rhythm, S1, S2 normal, no murmur no gallop. Gastrointestinal: Normal bowel sounds, nondistended, nontender, No ascites, , No masses, no hepatosplenomegaly. Extremities : No clubbing, No peripheral edema,. Integumentary: Diffuse erythema of the forefoot of the left, dry black crust on the plantar side of left foot, mild warm, no induration, mild tenderness. Lymphatics: No axilla or cervical lymphadenopathy. Neurology; alert awake oriented x3, no focal neurologic deficit, normal affection . mood and behavior. - Studies Laboratory Data (last 24 hrs) 12/05/24 12/05/24 12/05/24 15:08 15:08 15:08 WBC 9.80 Hgb 13.5 L Hct 38.8 L Plt Count 218 PT 14.5 H INR 1.39 APTT 28.3 Sodium 135 L Potassium 3.7 BUN 12 Creatinine 1.06 Glucose 100 Total Bilirubin 0.5 AST 30 ALT 31 Alkaline Phosphatase 74 Microbiology Data (last 24 hrs): 12/05/24 14:57 Nasopharnyx Influenza Type A Antigen Screen - Final 12/05/24 14:57 Nasopharnyx Influenza Type B Antigen Screen - Final Assessment and Plan - Plan This is 78 years old gentleman with past medical history notable for Crohn's disease not on immunosuppressant, hypertension, nonhealing wound of the left foot for a month, no improvement with oral antibiotics and wound care at wound clinic, presented with nausea, vomiting, fever up to 100 Fahrenheit at home chill, and being admitted. #1 nonhealing wound of the left foot with possible cellulitis No leukocytosis, no peripheral artery disease clinically and duplex ultrasound, no DVT by duplex ultrasound, no bony abnormality by skeletal x-ray, tested negative for influenza and COVID, will continue IV vancomycin, will consider surgical consult for debridement if no response to IV antibiotics #2 history of hypertension Will resume his hypertensive regimen, metoprolol and losartan with holding parameter DVT prophylaxis enoxaparin subcu - Advance Directives Does patient have a Living Will: No Does patient have a Durable POA for Healthcare: No
[2024-12-05] MEDS ORDERED: METOPROLOL TAR 25 MG TAB PO SCH (18:00)
[2024-12-05] MEDS ORDERED: VANCOMYCIN 750 MG in NA CHLORIDE 0.9% 150 ML IVPB ONE (18:30)
[2024-12-05] MEDS ORDERED: NA CHLORIDE 0.9% 100 ML ONE (20:28)
[2024-12-05] MEDS ORDERED: CEFEPIME 2 GM VIAL ONE (20:28)
[2024-12-05] MEDS ORDERED: GABAPENTIN 300 MG CAP PO SCH (21:00)
[2024-12-05] MEDS ORDERED: LOSARTAN POTASSIUM 50 MG TABLET PO SCH (21:00)
[2024-12-05 23:11] VITALS: TEMP 98.7
[2024-12-05 23:13] VITALS: BP 145/75; O2SAT 96
[2024-12-06] MEDS ORDERED: VANCOMYCIN 1 GM in NA CHLORIDE 0.9% 250 ML IVPB SCH (03:00)
[2024-12-06] MEDS ORDERED: ALBUTEROL 2.5 MG/3 ML NEB SOL NEB PRN (07:48)
[2024-12-06] MEDS ORDERED: ENOXAPARIN 40 MG/0.4 ML SQ SCH (09:00)
[2024-12-06] MEDS ORDERED: allopurinoL 100 MG TAB PO SCH (09:00)
[2024-12-06] MEDS ORDERED: VANCOMYCIN 1.75 GM in NA CHLORIDE 0.9% 500 ML IVPB SCH (15:00)
--- NOTE | 2024-12-08 12:22 | EKG ---
Test Date: 2024-12-05 Test Time: 15:09:51 [employer] Processing: BP MEASUREMENT RESULTS: Intervals: Rate: 98 RI: QRSD: 90 QT: 348 QTc: 444 [place]: P: RI: QRS: 51 T: -3 INTERPRETIVE STATEMENTS: Sinus tachycardia Abnormal ECG Compared to ECG 06/26/2021 13:55:34 Sinus rhythm no longer present Sinus arrhythmia no longer present First degree AV block no longer present Electronically Signed On 12-08-24 12:17:56 [employer] IN[employer] by Mickey Thapa
== END 2024-12-05 23:02 | DRG 603 ==
LOC: ER 14:00 → ERHOLD 17:08
PROVIDERS: ADMIT Internal Medicine; ATTEND Internal Medicine
DX: L03.116 Cellulitis of left lower limb (principal); I10 Essential (primary) hypertension; G62.9 Polyneuropathy, unspecified; M10.9 Gout, unspecified; K21.9 Gastro-esophageal reflux disease without esophagitis; Z93.2 Ileostomy status; Z88.1 Allergy status to other antibiotic agents; Z88.8 Allergy status to other drugs, medicaments and biological substances; Z90.49 Acquired absence of other specified parts of digestive tract; Z91.013 Allergy to seafood; Z86.711 Personal history of pulmonary embolism; Z86.718 Personal history of other venous thrombosis and embolism; Z11.52 Encounter for screening for COVID-19; Z79.01 Long term (current) use of anticoagulants; Z79.52 Long term (current) use of systemic steroids; Z79.899 Other long term (current) drug therapy; Z86.16 Personal history of COVID-19
CPT/HCPCS: 36415; 80053; 83605; 85025; 85610; 85730; 86140; 87040; 87804; 87811; 93005; 93926; 93971; 96365; 96366; 96367; 96375; 99285; J0692; J2405; J3010; J7030; J7050